=== PATIENT | male | born 1950 | race Two or more races ===

== ENCOUNTER → 2017-01-03 | Emergency (ER) | payer OTHER ==
[2017-01-03 15:43] VITALS: BP 132/105; PULSE 106; TEMP 98.2; BMI 31.6
--- NOTE | 2017-01-03 16:54 | PDOC ---
History of Present Illness - History of Present Illness Initial Comments: Patient is a 66 year old male with significant medical hx of HTN, GERD, hypothyroid disease and depression who is presenting to the ED with worsening depression for the past month. The patient saw his psychiatrist on 12/01 and was taken off one of his medications for depression. Since then hes had worsening depression, stating that he does not have the energy to leave the house. He reports that his psychiatrist is on vacation and he is unable to make an appointment with her. The patient does not have any suicidal or homicidal ideations. He denies wanting to hurt himself. The patient also has complaint of loss of appetite. Patient was hospitalized for his depression at [facility] two years ago. Social Hx: Denies alcohol, tobacco, or drug use. Psychiatrist: Mariama Beckett MD <Deborah Elliott - Last Filed: 01/03/17 17:36> - General History Source: Patient (managing cognitive engineer was used.) <Stephanie Roberts - Last Filed: 01/03/17 18:38> - General Chief Complaint: Psychiatric Stated Complaint: DIZZINESS Time Seen by Provider: 01/03/17 16:18 Past History <Deborah Elliott - Last Filed: 01/03/17 17:36> - Social History Smoking Status: Never smoked <Stephanie Roberts - Last Filed: 01/03/17 18:38> - Past Medical History Allergies/Adverse Reactions: Allergies No Known Allergies Allergy (Verified 01/03/17 15:43) Home Medications: Ambulatory Orders NK [No Known Home Medication] 01/03/17 *Review of Systems - Review of Systems Comments:: 01/03/17 17:36 GENERAL/CONSTITUTIONAL: Loss of appetite. No fever or chills. No weakness. HEAD, EYES, EARS, NOSE AND THROAT: No change in vision. No ear pain or discharge. No sore throat. CARDIOVASCULAR: No chest pain or shortness of breath. RESPIRATORY: No cough, wheezing, or hemoptysis. GASTROINTESTINAL: No nausea, vomiting, diarrhea or constipation. GENITOURINARY: No dysuria, frequency, or change in urination. MUSCULOSKELETAL: No joint or muscle swelling or pain. No neck or back pain. ENDOCRINE: No increased thirst. No abnormal weight change. SKIN: No rash NEUROLOGIC: No headache, vertigo, loss of consciousness, or change in strength/ sensation. PSYCH: Depression. No anxiety, suicidal ideation, homicidal ideation, or plans to self harm. <LexiDeborah - Last Filed: 01/03/17 17:36> *Physical Exam - Vital Signs Last Vital Signs Temp Pulse Resp BP Pulse Ox 98.2 F 106 H 20 132/105 96 01/03/17 15:37 01/03/17 15:37 01/03/17 15:37 01/03/17 15:37 01/03/17 15:37 - Physical Exam Comments: 01/03/17 17:37 GENERAL: Awake, alert, and fully oriented, in no acute distress HEAD: No signs of trauma EYES: PERRLA, EOMI, sclera anicteric, conjunctiva clear ENT: Auricles normal inspection, hearing grossly normal, nares patent, oropharynx clear without exudates. Moist mucosa NECK: Normal ROM, supple, no lymphadenopathy, JVD, or masses LUNGS: Breath sounds equal, clear to auscultation bilaterally. No wheezes, and no crackles HEART: Regular rate and rhythm, normal S1 and S2, no murmurs, rubs or gallops ABDOMEN: Soft, nontender, normoactive bowel sounds. No guarding, no rebound. No masses EXTREMITIES: Normal range of motion, no edema. No clubbing or cyanosis. No cords, erythema, or tenderness NEUROLOGICAL: Cranial nerves II through XII grossly intact. Normal speech, normal gait SKIN: Warm, Dry, normal turgor, no rashes or lesions noted. HEMATOLOGIC/LYMPHATIC: No anemia, easy bleeding, or history of blood clots. ALLERGIC/IMMUNOLOGIC: No hives or skin allergy. <LexiDeborah - Last Filed: 01/03/17 17:36> - Vital Signs Last Vital Signs Temp Pulse Resp BP Pulse Ox 98.2 F 106 H 20 132/105 96 01/03/17 15:37 01/03/17 15:37 01/03/17 15:37 01/03/17 15:37 01/03/17 15:37 <Stephanie Roberts - Last Filed: 01/03/17 18:38> Plan - Laboratory CBC & Chemistry Diagram: 01/03/17 17:08 01/03/17 17:08 <Deborah Elliott - Last Filed: 01/03/17 17:36> - Laboratory CBC & Chemistry Diagram: 01/03/17 17:08 01/03/17 17:08 - Medications Given in the ED: 66 y/o male with h/o hypothyroid disease as well as depression and HTN presents to the ED with c/o worsening of depressive Sx over the past month--not able to see his usual psychiatrist today and was told by his PCP to come to the ED. The patient is not homicidal, suicidal or psychotic. Will check thyroid and basic labs. If normal willl discharge hoem and have him follow-up with his usual psychiatrist and PCP. - Critical Care Time Comments: 01/03/17 18:36 66 y/o male with h/o hypothyroid disease as well as depression and HTN presents to the ED with c/o worsening of depressive Sx over the past month--not able to see his usual psychiatrist today and was told by his PCP to come to the ED. The patient is not homicidal, suicidal or psychotic. Will check thyroid and basic labs. If normal willl discharge hoem and have him follow-up with his usual psychiatrist and PCP. Addendum: Labs weren't reviewed and are noted in the EMR. Thyroid function tests are normal. We'll discharge home. Follow-up with regular psychiatrist. Return to the ER symptoms persist, worsen or new symptoms arise. <Stephanie Roberts - Last Filed: 01/03/17 18:38> *DC/Admit/Observation/Transfer - Attestations Scribe Attestion: 01/03/17 17:38 Documentation prepared by Deborah Elliott, acting as medical affairs manager for Stephanie Roberts MD. <Deborah Elliott - Last Filed: 01/03/17 17:36> - Discharge Dispostion Admit: No - Attestations Physician Attestion: 01/03/17 18:35 I, Dr. Stephanie Roberts, attest that the scribes documentation that appears above has been prepared under my direction and personally reviewed by me in its entirety. I confirmed that the note above accurately reflects all work, treatment, procedures, and medical decision-making performed by me. <Murano,Stephanie - Last Filed: 01/03/17 18:38> Diagnosis at time of Disposition: Depression - Discharge Dispostion Disposition: HOME Condition at time of disposition: Stable - Referrals Referrals: STAFF,NOT ON [Primary Care Provider] - - Patient Instructions Printed Discharge Instructions: DI for Depression -- Adult Additional Instructions: Follow-up with his psychiatrist within the next week. Return to the emergency department if your symptoms persist, worsen, or new symptoms arise.
[2017-01-03 17:21] LABS: BASOPHIL 0.6 % (0-2.0); EOSINOPHIL 2.7 % (0-4.5); MCH 29.7 pg (25.7-33.7); MCHC 33.9 g/dl (32.0-35.9); MEAN CELL VOLUME 87.6 fl (80-96); MEAN PLT VOLUME 9.3 fl (7.5-11.1); NEUTROPHILS 64.3 % (42.8-82.8); PLATELET COUNT 164 K/MM3 (134-434); RDW 13.7 % (11.9-15.9); WHITE BLOOD COUNT 5.1 K/mm3 (4.0-10.0)
[2017-01-03 17:40] LABS: CALCIUM 9.2 mg/dL (8.5-10.1); COCKROFT - GAULT 73.81; CREATININE 1.2 mg/dL (0.7-1.3); MAGNESIUM 2.2 mg/dL (1.8-2.4); PHOSPHOROUS 2.5 mg/dL (2.5-4.9)
[2017-01-03 17:48] LABS: THYROID STIMULATING HORMONE 2.12 uIU/ml (0.358-3.74)
== END | disposition home or self-care (01) ==
LOC: JER 15:36
DX: F32.9 Major depressive disorder, single episode, unspecified (principal); I10 Essential (primary) hypertension; E03.9 Hypothyroidism, unspecified; K21.9 Gastro-esophageal reflux disease without esophagitis
CPT/HCPCS: 36415; 80048; 83735; 84100; 84443; 85025; 99281-25

== ENCOUNTER 2017-09-03 09:45 | Inpatient (IN) | payer OTHER ==
--- NOTE | 2017-09-03 10:41 | PDOC ---
History of Present Illness - General History Source: Patient Exam Limitations: No Limitations - History of Present Illness Initial Comments: 09/03/17 10:57 The patient is a 67 year old male, with a significant past medical history of hypertension, GERD, and depression, who presents to the emergency department with 1 week history of dark watery stools. Patient reports multiple episodes of black diarrhea over the past week. He reports associated epigastric abdominal pain and weakness, but denies any nausea, vomiting, hemoptysis constipation, or hematochezia. He denies any recent fever, chills, headache, or dizziness. He denies any chest pain, shortness of breath, diaphoresis, or palpitations. He denies any dysuria, hematuria, frequency, or urgency. He denies any recent travel or sick contacts. Allergies: NKDA Past Surgical History: Appendectomy Social History: Non smoker. No ETOH or recreational drug use. <Porsha Ryan - Last Filed: 09/03/17 13:38> <Royal Rivera - Last Filed: 09/03/17 16:40> - General Chief Complaint: Nausea/Vomiting Stated Complaint: NAUSEA/DIARRHEA Time Seen by Provider: 09/03/17 10:25 Past History <Porsha Ryan - Last Filed: 09/03/17 13:38> - Past Medical History HTN: Yes Psychiatric Problems: Yes (DEPRESSION, ANXIETY) - Surgical History Appendectomy: Yes - Suicide/Smoking/Psychosocial Hx Smoking History: Never smoked Hx Alcohol Use: No Drug/Substance Use Hx: No Substance Use Type: None <Royal Rivera - Last Filed: 09/03/17 16:40> - Past Medical History Allergies/Adverse Reactions: Allergies Allergy/AdvReac Type Severity Reaction Status Date / Time No Known Allergies Allergy Verified 09/03/17 10:55 Home Medications: Ambulatory Orders NK [No Known Home Medication] 01/03/17 Review of Systems - Review of Systems Able to Perform ROS?: Yes Comments:: 09/03/17 10:58 ROS: A complete review of 10 out of 10 review of systems is taken and is negative apart from what is previously mentioned below and in the HPI. <Porsha Ryan - Last Filed: 09/03/17 13:38> *Physical Exam - Vital Signs Last Vital Signs Temp Pulse Resp BP Pulse Ox 97.4 F L 85 18 90/65 100 09/03/17 09:45 09/03/17 09:45 09/03/17 09:45 09/03/17 09:45 09/03/17 09:45 - Physical Exam Comments: 09/03/17 10:58 Vitals: Triage vital signs reviewed General Appearance: No acute distress, well nourished, well developed Cardiac: Regular rate and rhythm, no murmurs, no rubs, no gallops Abdomen: Soft, nondistended, normal bowel sounds, nontender to palpation Rectal: Guaiac positive black stool. Extremities: Full range of motion to all extremities, no cyanosis, clubbing, or edema Skin: Warm and dry, no rashes or lesions, no rash, no petechiae Psych: Normal mood, normal affect <Porsha Ryan - Last Filed: 09/03/17 13:38> Heart Score/ECG Review - ECG Intrepretation Comment:: 09/03/17 13:29 Vent Rate: 74 bpm IMPRESSION: Left axis deviation. Incomplete right bindle branch block. <Porsha Ryan - Last Filed: 09/03/17 13:38> ED Treatment Course - LABORATORY CBC & Chemistry Diagram: 09/03/17 10:42 09/03/17 11:08 - RADIOLOGY Radiograph Interpretation: 09/03/17 13:39 EXAM: CXR INTERPRETED BY: Dr. Rolon REVIEWED BY: Dr. Rivera Impression : Scoliosis. No acute pathology. No significant change. - Consult/PCP Time Called: 13:01 (Case discussed with Dr. Velasquez who accepts admission.) - Additional Consults Time Called: 12:20 (First call to Dr. Jama. ) Consult/PCP: Consult Reason/Comments: Requested Dr. Starkey Time Called: 12:22 (First call to Dr. Starkey) Consult/PCP: GI Consult Reason/Comments: GI bleed <Porsha Ryan - Last Filed: 09/03/17 13:38> - LABORATORY CBC & Chemistry Diagram: 09/03/17 10:42 09/03/17 11:08 <Royal Rivera - Last Filed: 09/03/17 16:40> Medical Decision Making - Critical Care Time Total Critical Care Time (minutes): 35 Critical Care Statement: The care of this patient involved high complexity decision making to prevent further life threatening deterioration of the patient 's condition and/or to evaluate & treat vital organ system(s) failure or risk of failure. - Medical Decision Making 09/03/17 16:38 Have an years old nonanticoagulant patient presents with 1 week history of dark black stools and epigastric discomfort. His rectal examination was guaiac positive melena His hemoglobin and hematocrit were markedly decreased. His hemoglobin was for. Case discussed with Dr. Vera admitting doctor Case discussed with Dr. Lalito marinelli. Requested Protonix bolus/gtt 2 Units packed red blood cells ordered <Royal Rivera - Last Filed: 09/03/17 16:40> *DC/Admit/Observation/Transfer - Attestations Scribe Attestion: 09/03/17 10:59 Documentation prepared by Porsha Ryan, acting as medical coordinator pesticide use for Royal Rivera MD. <Porsha Ryan - Last Filed: 09/03/17 13:38> - Discharge Dispostion Admit: Yes <Royal Rivera - Last Filed: 09/03/17 16:40> Diagnosis at time of Disposition: GI bleed Qualifiers: GI bleed type/associated pathology: melena Qualified Code(s): K92.1 - Melena
[2017-09-03 10:55] VITALS: BMI 26.6
[2017-09-03 11:19] LABS: BASO % 0.5 % (0-2.0); EOS % 0.2 % (0-4.5); HEMATOCRIT 12.8 % (35.4-49); LYMPH % 13.7 % (8-40); MCH 30.7 pg (25.7-33.7); MCHC 34.2 g/dl (32.0-35.9); MEAN CELL VOLUME 89.8 fl (80-96); MEAN PLT VOLUME 9.3 fl (7.5-11.1); MONO % 4.2 % (3.8-10.2); NEUT % 81.4 % (42.8-82.8); PLATELET COUNT 134 K/MM3 (134-434); RBC 1.43 M/mm3 (4.00-5.60); RDW 14.2 % (11.9-15.9); WHITE BLOOD COUNT 9.1 K/mm3 (4.0-10.0)
[2017-09-03 11:21] LABS: HEMOGLOBIN 4.4 GM/dL (11.7-16.9)
[2017-09-03 11:28] LABS: INR 1.05 (0.82-1.09); PROTHROMBIN TIME (PATIENT) 11.9 SEC (9.98-11.88)
[2017-09-03 11:31] LABS: ACTIVATED PTT 25.1 SECONDS (26.9-34.4)
[2017-09-03 11:41] LABS: ALBUMIN 2.2 g/dl (3.4-5.0); ANION GAP 12 (8-16); CALCIUM 7.1 mg/dL (8.5-10.1); CHLORIDE 111 mmol/L (98-107); CO2 18 mmol/L (21-32); CREATININE 1.6 mg/dL (0.7-1.3); GLUCOSE,RANDOM 115 mg/dL (74-106); SGOT/AST 13 U/L (15-37); SGPT/ALT 18 U/L (12-78); SODIUM 141 mmol/L (136-145); TOT PROT 4.4 g/dl (6.4-8.2)
[2017-09-03 11:43] LABS: ALK PHOS 43 U/L (45-117)
[2017-09-03 12:05] LABS: BILIRUBIN,TOTAL < 0.1 mg/dL (0.2-1.0)
[2017-09-03 12:06] LABS: BLOOD UREA NITROGEN 114 mg/dL (7-18)
[2017-09-03] MEDS ORDERED: PANTOPRAZOLE SODIUM 40 MG VIAL IVPUSH ONE (15:11)
[2017-09-03] MEDS ORDERED: PANTOPRAZOLE SODIUM 40 MG VIAL ONE (15:18)
[2017-09-03] MEDS: PANTOPRAZOLE SODIUM 80 MG in SODIUM CHLORIDE 100 ML IVPB SCH ×2 (15:18→16:37)
--- NOTE | 2017-09-03 15:22 | CON.GI ---
Consult - History of Present Illness History of Present Illness: The patient is a 67 year old male, with a significant past medical history of hypertension, GERD, and depression, who presents to the emergency department with 1 week history of dark watery stools. Patient reports multiple episodes of black diarrhea over the past week. He reports associated epigastric abdominal pain and weakness, but denies any nausea, vomiting, hemoptysis constipation, or hematochezia. He denies any recent fever, chills, headache, or dizziness. He denies any chest pain, shortness of breath, diaphoresis, or palpitations. He denies any dysuria, hematuria, frequency, or urgency. He denies any recent travel or sick contacts. - Alcohol/Substance Use Hx Alcohol Use: No - Smoking History Smoking history: Never smoked Have you smoked in the past 12 months: No Home Medications - Allergies Allergies/Adverse Reactions: Allergies Allergy/AdvReac Type Severity Reaction Status Date / Time No Known Allergies Allergy Verified 09/03/17 10:55 - Home Medications Home Medications: Ambulatory Orders NK [No Known Home Medication] 01/03/17 Family Disease History - Family Disease History Family History: Unremarkable (non-contributory) Review of Systems Findings/Remarks: as per H&P, HPI Physical Exam-GI Vital Signs: Vital Signs Temperature 97.8 F 09/03/17 14:22 Pulse Rate 78 09/03/17 14:22 Respiratory Rate 16 09/03/17 14:22 Blood Pressure 107/59 09/03/17 14:22 O2 Sat by Pulse Oximetry (%) 98 09/03/17 14:22 Labs: CBC, BMP 09/03/17 10:42 09/03/17 11:08 INR, PTT INR 1.05 (0.82-1.09) 09/03/17 11:08 Laboratory Results - last 24 hr 09/03/17 09/03/17 09/03/17 10:42 11:08 11:08 WBC 9.1 D RBC 1.43 L D Hgb 4.4 L* D Hct 12.8 L MCV 89.8 MCH 30.7 MCHC 34.2 RDW 14.2 Plt Count 134 MPV 9.3 Neutrophils % 81.4 D Lymphocytes % 13.7 D Monocytes % 4.2 Eosinophils % 0.2 D Basophils % 0.5 PT with INR 11.90 H INR 1.05 PTT (Actin FS) 25.1 L Sodium Potassium Chloride Carbon Dioxide Anion Gap BUN Creatinine Creat Clearance w eGFR POC Glucometer Random Glucose Calcium Total Bilirubin AST ALT Alkaline Phosphatase Troponin I Total Protein Albumin Stool Occult Blood Positive Blood Type Antibody Screen Crossmatch 09/03/17 09/03/17 09/03/17 11:08 11:08 12:00 WBC RBC Hgb Hct MCV MCH MCHC RDW Plt Count MPV Neutrophils % Lymphocytes % Monocytes % Eosinophils % Basophils % PT with INR INR PTT (Actin FS) Sodium 141 Potassium 5.0 Chloride 111 H Carbon Dioxide 18 L D Anion Gap 12 BUN 114 H* D Creatinine 1.6 H D Creat Clearance w eGFR 43.33 POC Glucometer Random Glucose 115 H Calcium 7.1 L D Total Bilirubin < 0.1 L AST 13 L ALT 18 Alkaline Phosphatase 43 L Troponin I < 0.02 Total Protein 4.4 L Albumin 2.2 L Stool Occult Blood Blood Type O POSITIVE O POSITIVE Antibody Screen Negative Crossmatch See Detail See Detail 09/03/17 12:46 WBC RBC Hgb Hct MCV MCH MCHC RDW Plt Count MPV Neutrophils % Lymphocytes % Monocytes % Eosinophils % Basophils % PT with INR INR PTT (Actin FS) Sodium Potassium Chloride Carbon Dioxide Anion Gap BUN Creatinine Creat Clearance w eGFR POC Glucometer 130.37182 Random Glucose Calcium Total Bilirubin AST ALT Alkaline Phosphatase Troponin I Total Protein Albumin Stool Occult Blood Blood Type Antibody Screen Crossmatch Imaging - Results Chest X-ray: Report Reviewed Problem List - Problems (1) GI bleed Code(s): K92.2 - GASTROINTESTINAL HEMORRHAGE, UNSPECIFIED Qualifiers: GI bleed type/associated pathology: melena Qualified Code(s): K92.1 - Melena
--- NOTE | 2017-09-03 15:57 | HP ---
Admitting History and Physical - Primary Care Physician PCP: April Velasquez - Admission Chief Complaint: dark stools..watery History of Present Illness: 67 year old male, with a significant past medical history of hypertension, GERD , and depression, who presents to the emergency department with 1 week history of dark watery stools. Patient reports multiple episodes of black diarrhea over the past week. He reports associated epigastric abdominal pain and weakness, but denies any nausea, vomiting, hemoptysis constipation, or hematochezia. He denies any recent fever, chills, headache, or dizziness. He denies any chest pain, shortness of breath, diaphoresis, or palpitations. He denies any dysuria, hematuria, frequency, or urgency. He denies any recent travel or sick contacts. - Past Medical History Cardiovascular: Yes: HTN Renal/: Yes: Renal Inusuff Psych: Yes: Depression - Smoking History Smoking history: Never smoked Have you smoked in the past 12 months: No - Alcohol/Substance Use Hx Alcohol Use: No Home Medications - Allergies Allergies/Adverse Reactions: Allergies Allergy/AdvReac Type Severity Reaction Status Date / Time No Known Allergies Allergy Verified 09/03/17 10:55 - Home Medications Home Medications: Ambulatory Orders NK [No Known Home Medication] 01/03/17 Physical Examination Vital Signs: Vital Signs Temperature 97.6 F 09/03/17 15:52 Pulse Rate 73 09/03/17 15:52 Respiratory Rate 16 09/03/17 15:52 Blood Pressure 106/62 09/03/17 15:52 O2 Sat by Pulse Oximetry (%) 97 09/03/17 15:52 Constitutional: Yes: No Distress HENT: Yes: Atraumatic Neck: Yes: Supple Cardiovascular: Yes: Regular Rate and Rhythm Respiratory: Yes: CTA Bilaterally Gastrointestinal: Yes: Normal Bowel Sounds Extremities: Yes: WNL Edema: No Peripheral Pulses WNL: Yes Neurological: Yes: Alert, Oriented Labs: CBC, BMP 09/03/17 10:42 09/03/17 11:08 Problem List - Problems (1) GI bleed Assessment/Plan: npo, ivf iv protonix Code(s): K92.2 - GASTROINTESTINAL HEMORRHAGE, UNSPECIFIED Qualifiers: GI bleed type/associated pathology: melena Qualified Code(s): K92.1 - Melena (2) Depression Code(s): F32.9 - MAJOR DEPRESSIVE DISORDER, SINGLE EPISODE, UNSPECIFIED (3) Acute blood loss anemia Assessment/Plan: 3 u prbc given Code(s): D62 - ACUTE POSTHEMORRHAGIC ANEMIA Assessment/Plan Laboratory Tests 09/03/17 09/03/17 09/03/17 10:42 11:08 11:08 WBC 9.1 D RBC 1.43 L D Hgb 4.4 L* D Hct 12.8 L MCV 89.8 MCH 30.7 MCHC 34.2 RDW 14.2 Plt Count 134 MPV 9.3 Neutrophils % 81.4 D Lymphocytes % 13.7 D Monocytes % 4.2 Eosinophils % 0.2 D Basophils % 0.5 PT with INR 11.90 H INR 1.05 PTT (Actin FS) 25.1 L Sodium Potassium Chloride Carbon Dioxide Anion Gap BUN Creatinine Creat Clearance w eGFR POC Glucometer Random Glucose Calcium Total Bilirubin AST ALT Alkaline Phosphatase Troponin I Total Protein Albumin Stool Occult Blood Positive Blood Type Antibody Screen Crossmatch 09/03/17 09/03/17 09/03/17 11:08 11:08 12:00 WBC RBC Hgb Hct MCV MCH MCHC RDW Plt Count MPV Neutrophils % Lymphocytes % Monocytes % Eosinophils % Basophils % PT with INR INR PTT (Actin FS) Sodium 141 Potassium 5.0 Chloride 111 H Carbon Dioxide 18 L D Anion Gap 12 BUN 114 H* D Creatinine 1.6 H D Creat Clearance w eGFR 43.33 POC Glucometer Random Glucose 115 H Calcium 7.1 L D Total Bilirubin < 0.1 L AST 13 L ALT 18 Alkaline Phosphatase 43 L Troponin I < 0.02 Total Protein 4.4 L Albumin 2.2 L Stool Occult Blood Blood Type O POSITIVE O POSITIVE Antibody Screen Negative Crossmatch See Detail See Detail 09/03/17 12:46 WBC RBC Hgb Hct MCV MCH MCHC RDW Plt Count MPV Neutrophils % Lymphocytes % Monocytes % Eosinophils % Basophils % PT with INR INR PTT (Actin FS) Sodium Potassium Chloride Carbon Dioxide Anion Gap BUN Creatinine Creat Clearance w eGFR POC Glucometer 130.41729 Random Glucose Calcium Total Bilirubin AST ALT Alkaline Phosphatase Troponin I Total Protein Albumin Stool Occult Blood Blood Type Antibody Screen Crossmatch Active Medications Generic Name Dose Route Start Last Admin Trade Name Freq PRN Reason Stop Dose Admin Pantoprazole Sodium 160 mg/ 250 mls @ 12.5 mls/hr 09/03/17 15:22 Dextrose IVPB Q20H ELGIN 8 MG/HR Active Medications Generic Name Dose Route Start Last Admin Trade Name Freq PRN Reason Stop Dose Admin Pantoprazole Sodium 160 mg/ 250 mls @ 12.5 mls/hr 09/03/17 15:22 Dextrose IVPB Q20H ELGIN 8 MG/HR Dextrose/Sodium Chloride 1,000 mls @ 75 mls/hr 09/03/17 16:00 09/03/17 16:36 D5-1/2ns - IV 75 mls/hr ASDIR ELGIN Administration Sucralfate 1 gm 09/03/17 18:00 09/03/17 17:32 Carafate Oral Suspension - PO 1 gm QID ELGIN Administration
[2017-09-03] MEDS ORDERED: DEXTROSE 5%-0.45% SALINE 1,000 ML IV SCH (16:00)
--- NOTE | 2017-09-03 16:15 | CON.GI ---
Consult - History of Present Illness History of Present Illness: Chart reviewed. Events noted. The patient is a 67 year old male, with a significant past medical history of hypertension, GERD, and depression, who presents to the emergency department with 1 week history of dark watery stools. Patient reports multiple episodes of black diarrhea over the past week. He reports associated epigastric abdominal pain and weakness, but denies any nausea, vomiting, hemoptysis, hematemesis, hematochezia, constipation. He denies any recent fever, chills, headache, or dizziness. He denies any chest pain, shortness of breath, diaphoresis, or palpitations. He denies any recent travel or sick contacts. Took peptobismol for diarrheal symptoms. No hisotory of chronic NSAIDs, oe excessive alcohol. No history of PUD, or GI bleeding in the past. - History Source History Provided By: Patient, Medical Record - Past Medical History Cardio/Vascular: Yes: HTN Renal/: Yes: Renal Inusuff Psych: Yes: Depression - Alcohol/Substance Use Hx Alcohol Use: No - Smoking History Smoking history: Never smoked Have you smoked in the past 12 months: No Home Medications - Allergies Allergies/Adverse Reactions: Allergies Allergy/AdvReac Type Severity Reaction Status Date / Time No Known Allergies Allergy Verified 09/03/17 10:55 - Home Medications Home Medications: Ambulatory Orders NK [No Known Home Medication] 01/03/17 Family Disease History - Family Disease History Family History: Unremarkable (non-contributory) Review of Systems Findings/Remarks: As per H&P, HPI Physical Exam-GI Vital Signs: Vital Signs Temperature 97.6 F 09/03/17 15:52 Pulse Rate 73 09/03/17 15:52 Respiratory Rate 16 09/03/17 15:52 Blood Pressure 106/62 09/03/17 15:52 O2 Sat by Pulse Oximetry (%) 97 09/03/17 15:52 Constitutional: Yes: Calm Eyes: Yes: Conjunctiva Clear HENT: Yes: Atraumatic Neck: Yes: Supple Cardiovascular: Yes: Regular Rate and Rhythm Respiratory: Yes: Regular Gastrointestinal Inspection: No: Ascites, Distention ...Auscultate: Yes: Normoactive Bowel Sounds, Other ...Palpate: Yes: Soft. No: Firm/Rigid, Guarding, Mass, Tenderness, Tenderness, Epigastium, Tenderness, Rebound ...Rectal Exam: Yes: Guaiac Positive, Other (melena) Neurological: Yes: Alert, Oriented Labs: CBC, BMP 09/03/17 10:42 09/03/17 11:08 INR, PTT INR 1.05 (0.82-1.09) 09/03/17 11:08 Laboratory Tests 09/03/17 09/03/17 09/03/17 10:42 11:08 11:08 WBC 9.1 D RBC 1.43 L D Hgb 4.4 L* D Hct 12.8 L MCV 89.8 MCH 30.7 MCHC 34.2 RDW 14.2 Plt Count 134 MPV 9.3 Neutrophils % 81.4 D Lymphocytes % 13.7 D Monocytes % 4.2 Eosinophils % 0.2 D Basophils % 0.5 PT with INR 11.90 H INR 1.05 PTT (Actin FS) 25.1 L Sodium Potassium Chloride Carbon Dioxide Anion Gap BUN Creatinine Creat Clearance w eGFR POC Glucometer Random Glucose Calcium Total Bilirubin AST ALT Alkaline Phosphatase Troponin I Total Protein Albumin Stool Occult Blood Positive Blood Type Antibody Screen Crossmatch 09/03/17 09/03/17 09/03/17 11:08 11:08 12:00 WBC RBC Hgb Hct MCV MCH MCHC RDW Plt Count MPV Neutrophils % Lymphocytes % Monocytes % Eosinophils % Basophils % PT with INR INR PTT (Actin FS) Sodium 141 Potassium 5.0 Chloride 111 H Carbon Dioxide 18 L D Anion Gap 12 BUN 114 H* D Creatinine 1.6 H D Creat Clearance w eGFR 43.33 POC Glucometer Random Glucose 115 H Calcium 7.1 L D Total Bilirubin < 0.1 L AST 13 L ALT 18 Alkaline Phosphatase 43 L Troponin I < 0.02 Total Protein 4.4 L Albumin 2.2 L Stool Occult Blood Blood Type O POSITIVE O POSITIVE Antibody Screen Negative Crossmatch See Detail See Detail 09/03/17 12:46 WBC RBC Hgb Hct MCV MCH MCHC RDW Plt Count MPV Neutrophils % Lymphocytes % Monocytes % Eosinophils % Basophils % PT with INR INR PTT (Actin FS) Sodium Potassium Chloride Carbon Dioxide Anion Gap BUN Creatinine Creat Clearance w eGFR POC Glucometer 130.99618 Random Glucose Calcium Total Bilirubin AST ALT Alkaline Phosphatase Troponin I Total Protein Albumin Stool Occult Blood Blood Type Antibody Screen Crossmatch Problem List - Problems (1) GI bleed Code(s): K92.2 - GASTROINTESTINAL HEMORRHAGE, UNSPECIFIED Qualifiers: GI bleed type/associated pathology: melena Qualified Code(s): K92.1 - Melena (2) Acute blood loss anemia Code(s): D62 - ACUTE POSTHEMORRHAGIC ANEMIA Assessment/Plan A 67 yom with likely upper GI bleeding, r/o proximal, lower GI bleeding. Agree with transfusion to Hgb above 8 gm/dl golyte PPI, carafate, IVF, CBC q6 hrs Close monitoring EGD once transfused and stable ICU monitoring.
[2017-09-03] MEDS ORDERED: BISACODYL 5 MG TABLET.DR (FP) PO ONE (16:18)
[2017-09-03] MEDS ORDERED: PEG 3350/NA SULF BICARB CL/KCL 4000 ML SOLN.RECON PO ONE (16:18)
[2017-09-03] MEDS: PANTOPRAZOLE SODIUM 160 MG in DEXTROSE 5%-WATER - 250 ML IVPB SCH ×2 (16:36→18:32)
[2017-09-03] MEDS ORDERED: BISACODYL 5 MG TABLET.DR (FP) ONE (17:31)
[2017-09-03] MEDS ORDERED: SUCRALFATE 1 GM TABLET (FP) ONE (17:31)
[2017-09-03] MEDS: SUCRALFATE 1 GM/10 ML UNIT DOSE CUPS PO SCH ×2 (17:32→22:25)
[2017-09-03 18:12] LABS: MCH 29.7 pg (25.7-33.7); MCHC 33.4 g/dl (32.0-35.9); MEAN CELL VOLUME 88.8 fl (80-96); MEAN PLT VOLUME 9.1 fl (7.5-11.1); PLATELET COUNT 134 K/MM3 (134-434); RBC 2.07 M/mm3 (4.00-5.60); RDW 14.6 % (11.9-15.9); WHITE BLOOD COUNT 8.8 K/mm3 (4.0-10.0)
[2017-09-03 18:18] LABS: HEMATOCRIT 18.3 % (35.4-49); HEMOGLOBIN 6.1 GM/dL (11.7-16.9)
[2017-09-04 08:02] LABS: BASO % 0.7 % (0-2.0); EOS % 1.1 % (0-4.5); MCHC 34.4 g/dl (32.0-35.9); MEAN CELL VOLUME 87.4 fl (80-96); MEAN PLT VOLUME 9.6 fl (7.5-11.1); MONO % 4.5 % (3.8-10.2); NEUT % 67.7 % (42.8-82.8); PLATELET COUNT 146 K/MM3 (134-434); RBC 2.17 M/mm3 (4.00-5.60); RDW 14.9 % (11.9-15.9); WHITE BLOOD COUNT 9.1 K/mm3 (4.0-10.0)
[2017-09-04 08:25] LABS: ALBUMIN 2.6 g/dl (3.4-5.0); ANION GAP 10 (8-16); BLOOD UREA NITROGEN 84 mg/dL (7-18); CALCIUM 7.3 mg/dL (8.5-10.1); CHLORIDE 115 mmol/L (98-107); CO2 19 mmol/L (21-32); CREATININE 1.5 mg/dL (0.7-1.3); GLUCOSE,RANDOM 202 mg/dL (74-106); POTASSIUM 4.3 mmol/L (3.5-5.1); SGOT/AST 22 U/L (15-37); SGPT/ALT 25 U/L (12-78); SODIUM 144 mmol/L (136-145)
[2017-09-04 08:30] LABS: ALK PHOS 50 U/L (45-117); BILIRUBIN,TOTAL 0.4 mg/dL (0.2-1.0); TOT PROT 5.1 g/dl (6.4-8.2)
[2017-09-04 08:36] LABS: INR 1.03 (0.82-1.09); PROTHROMBIN TIME (PATIENT) 11.6 SEC (9.98-11.88)
[2017-09-04 08:49] LABS: HEMOGLOBIN 6.5 GM/dL (11.7-16.9)
[2017-09-04] MEDS ORDERED: MUPIROCIN 2% TOPICAL OINTMENT FOR DECOLONIZATION NS SCH (10:00)
--- NOTE | 2017-09-04 10:52 | EKG ---
Test Reason : Blood Pressure : / mmHG Vent. Rate : 074 BPM Atrial Rate : 074 BPM P-R Int : 158 ms QRS Dur : 106 ms QT Int : 374 ms P-R-T Axes : 037 -32 045 degrees QTc Int : 415 ms NORMAL SINUS RHYTHM LEFT AXIS DEVIATION INCOMPLETE RIGHT BUNDLE BRANCH BLOCK ABNORMAL ECG NO PREVIOUS ECGS AVAILABLE Confirmed by MD Adonis, Ranjit ([id number]) on 09/04/2017 10:52:25 AM Referred By: Confirmed By:Ranjit Lamb MD
[2017-09-04] MEDS: SUCRALFATE 1 GM/10 ML UNIT DOSE CUPS PO SCH ×4 (11:21→21:08)
[2017-09-04] MEDS: PANTOPRAZOLE SODIUM 160 MG in DEXTROSE 5%-WATER - 250 ML IVPB SCH ×2 (11:27→16:45)
[2017-09-04] MEDS ORDERED: PROPOFOL 20 ML ONE ×3 (13:05→13:06)
--- NOTE | 2017-09-04 13:39 | PROC ---
Endoscopy Procedure Endoscopy procedure completed. Please see scanned procedure report. Duodenal bulb, oozing blood, 10 mm x 7 mm ulcer with visible vessel was found, injected with 6 cc Epi 1:10,000 and closed with 3 resolution clipps. Complete hemostasis was achieved. Gastric mucosal biopsies taken for H. pylori. Colonoscopy revealed mild, sigmoid diverticulosis Clear liquid diet PPI Carafate No NSAIDs Follow biopsy results. Serial CBC
--- NOTE | 2017-09-04 16:57 | PN ---
Progress Note, Physician History of Present Illness: s/p egd - Current Medication List Current Medications: Active Medications Chlorhexidine Gluconate (Hibiclens For Decolonization -) 1 applic TP HS ELGIN Dextrose/Sodium Chloride (D5-1/2ns -) 1,000 mls @ 75 mls/hr IV ASDIR ELGIN Pantoprazole Sodium 160 mg/ (Dextrose) 250 mls @ 12.5 mls/hr IVPB Q20H ELGIN PRN Reason: 8 MG/HR Mupirocin (Bactroban Ointment (For Decolonization) -) 1 applic NS BID ELGIN Stop: 09/09/17 09:59 Last Admin: 09/04/17 11:21 Dose: Not Given Sucralfate (Carafate Oral Suspension -) 1 gm PO QID ELGIN - Objective Vital Signs: Vital Signs Temperature 97.6 F 09/04/17 14:45 Pulse Rate 96 H 09/04/17 14:45 Respiratory Rate 20 09/04/17 14:45 Blood Pressure 137/84 09/04/17 14:45 O2 Sat by Pulse Oximetry (%) 97 09/04/17 14:13 Constitutional: Yes: Calm HENT: Yes: Atraumatic Neck: Yes: Supple Cardiovascular: Yes: Regular Rate and Rhythm Respiratory: Yes: CTA Bilaterally Gastrointestinal: Yes: Normal Bowel Sounds Extremities: Yes: WNL Neurological: Yes: Alert, Oriented Labs: CBC, BMP 09/04/17 06:30 09/04/17 06:30 INR, PTT INR 1.03 (0.82-1.09) 09/04/17 06:30 Problem List - Problems (1) GI bleed Assessment/Plan: duodenal ulcer...clamped iv protonix Code(s): K92.2 - GASTROINTESTINAL HEMORRHAGE, UNSPECIFIED Qualifiers: GI bleed type/associated pathology: melena Qualified Code(s): K92.1 - Melena (2) Depression Code(s): F32.9 - MAJOR DEPRESSIVE DISORDER, SINGLE EPISODE, UNSPECIFIED (3) Acute blood loss anemia Code(s): D62 - ACUTE POSTHEMORRHAGIC ANEMIA
[2017-09-04] MEDS ORDERED: CHLORHEXIDINE GLUCONATE 4% CLEANSER FOR DECOLONIZATION TP SCH (22:00)
[2017-09-05] MEDS: DEXTROSE 5%-0.45% SALINE 1,000 ML IV SCH ×2 (01:04→17:10)
[2017-09-05 01:37] LABS: HEMOGLOBIN 7.6 GM/dL (11.7-16.9); MCHC 34.3 g/dl (32.0-35.9); MEAN CELL VOLUME 87.5 fl (80-96); MEAN PLT VOLUME 8.8 fl (7.5-11.1); PLATELET COUNT 136 K/MM3 (134-434); RBC 2.52 M/mm3 (4.00-5.60); RDW 14.3 % (11.9-15.9); WHITE BLOOD COUNT 8.3 K/mm3 (4.0-10.0)
[2017-09-05 02:02] LABS: INR 1.05 (0.82-1.09); PROTHROMBIN TIME (PATIENT) 11.9 SEC (9.98-11.88)
[2017-09-05 02:03] LABS: ALBUMIN 2.4 g/dl (3.4-5.0); ALK PHOS 85 U/L (45-117); ANION GAP 7 (8-16); BILIRUBIN,TOTAL 0.4 mg/dL (0.2-1.0); BLOOD UREA NITROGEN 44 mg/dL (7-18); CALCIUM 7.6 mg/dL (8.5-10.1); CHLORIDE 116 mmol/L (98-107); CO2 23 mmol/L (21-32); CREATININE 1.2 mg/dL (0.7-1.3); GLUCOSE,RANDOM 100 mg/dL (74-106); SGOT/AST 59 U/L (15-37); SGPT/ALT 51 U/L (12-78); SODIUM 146 mmol/L (136-145); TOT PROT 4.8 g/dl (6.4-8.2)
[2017-09-05 06:06] LABS: SERUM IRON SATURATION 40 % (15-55); TOTAL IRON BINDING CAPACITY 299 ug/dL (250-450); UIBC 180 ug/dL (111-343)
[2017-09-05 08:09] LABS: HEMATOCRIT 21.1 % (35.4-49); HEMOGLOBIN 7.3 GM/dL (11.7-16.9); MCH 30.1 pg (25.7-33.7); MCHC 34.5 g/dl (32.0-35.9); MEAN CELL VOLUME 87.4 fl (80-96); MEAN PLT VOLUME 8.7 fl (7.5-11.1); PLATELET COUNT 121 K/MM3 (134-434); RBC 2.42 M/mm3 (4.00-5.60); RDW 14.3 % (11.9-15.9); WHITE BLOOD COUNT 6.3 K/mm3 (4.0-10.0)
[2017-09-05 08:33] LABS: ALBUMIN 2.3 g/dl (3.4-5.0); ALK PHOS 79 U/L (45-117); ANION GAP 7 (8-16); BILIRUBIN,TOTAL 0.4 mg/dL (0.2-1.0); BLOOD UREA NITROGEN 33 mg/dL (7-18); CALCIUM 7.3 mg/dL (8.5-10.1); CHLORIDE 115 mmol/L (98-107); CO2 25 mmol/L (21-32); CREATININE 1.1 mg/dL (0.7-1.3); GLUCOSE,RANDOM 100 mg/dL (74-106); POTASSIUM 3.8 mmol/L (3.5-5.1); SGOT/AST 38 U/L (15-37); SGPT/ALT 46 U/L (12-78); SODIUM 147 mmol/L (136-145); TOT PROT 4.5 g/dl (6.4-8.2)
[2017-09-05 08:44] LABS: INR 1.04 (0.82-1.09); PROTHROMBIN TIME (PATIENT) 11.7 SEC (9.98-11.88)
[2017-09-05] MEDS: SUCRALFATE 1 GM/10 ML UNIT DOSE CUPS PO SCH ×4 (09:42→21:49)
[2017-09-05] MEDS: PANTOPRAZOLE SODIUM 160 MG in DEXTROSE 5%-WATER - 250 ML IVPB SCH (17:10)
--- NOTE | 2017-09-05 17:10 | PN ---
Progress Note, Physician History of Present Illness: doing better - Current Medication List Current Medications: Active Medications Dextrose/Sodium Chloride (D5-1/2ns -) 1,000 mls @ 75 mls/hr IV ASDIR [facility] Last Admin: 09/05/17 01:04 Dose: 75 mls/hr Pantoprazole Sodium 160 mg/ (Dextrose) 250 mls @ 12.5 mls/hr IVPB Q20H ELGIN PRN Reason: 8 MG/HR Last Admin: 09/04/17 16:45 Dose: 12.5 mls/hr Sucralfate (Carafate Oral Suspension -) 1 gm PO QID [facility] Last Admin: 09/05/17 14:16 Dose: 1 gm - Objective Vital Signs: Vital Signs Temperature 98.6 F 09/05/17 13:00 Pulse Rate 70 09/05/17 13:00 Respiratory Rate 20 09/05/17 13:00 Blood Pressure 139/77 09/05/17 13:00 O2 Sat by Pulse Oximetry (%) 98 09/05/17 08:16 Constitutional: Yes: No Distress HENT: Yes: Atraumatic Neck: Yes: Supple Cardiovascular: Yes: Regular Rate and Rhythm Respiratory: Yes: CTA Bilaterally Gastrointestinal: Yes: Normal Bowel Sounds Extremities: Yes: WNL Edema: No Peripheral Pulses WNL: Yes Neurological: Yes: Alert, Oriented Labs: CBC, BMP 09/05/17 06:50 09/05/17 06:50 INR, PTT INR 1.04 (0.82-1.09) 09/05/17 06:50 Problem List - Problems (1) GI bleed Assessment/Plan: duodenal ulcer...clamped iv protonix h/h stable Code(s): K92.2 - GASTROINTESTINAL HEMORRHAGE, UNSPECIFIED Qualifiers: GI bleed type/associated pathology: melena Qualified Code(s): K92.1 - Melena (2) Depression Code(s): F32.9 - MAJOR DEPRESSIVE DISORDER, SINGLE EPISODE, UNSPECIFIED (3) Acute blood loss anemia Assessment/Plan: 3 u prbc given h/h better Code(s): D62 - ACUTE POSTHEMORRHAGIC ANEMIA
[2017-09-06 07:38] LABS: HEMATOCRIT 23.2 % (35.4-49); HEMOGLOBIN 7.9 GM/dL (11.7-16.9); MCH 30.2 pg (25.7-33.7); MCHC 34.3 g/dl (32.0-35.9); MEAN CELL VOLUME 87.9 fl (80-96); MEAN PLT VOLUME 8.8 fl (7.5-11.1); PLATELET COUNT 127 K/MM3 (134-434); RBC 2.63 M/mm3 (4.00-5.60); RDW 14.7 % (11.9-15.9); WHITE BLOOD COUNT 5.8 K/mm3 (4.0-10.0)
[2017-09-06 08:02] LABS: INR 1.04 (0.82-1.09); PROTHROMBIN TIME (PATIENT) 11.7 SEC (9.98-11.88)
[2017-09-06 08:03] LABS: ALBUMIN 2.3 g/dl (3.4-5.0); ANION GAP 7 (8-16); BLOOD UREA NITROGEN 17 mg/dL (7-18); CALCIUM 7.7 mg/dL (8.5-10.1); CHLORIDE 112 mmol/L (98-107); CO2 27 mmol/L (21-32); GLUCOSE,RANDOM 89 mg/dL (74-106); POTASSIUM 3.4 mmol/L (3.5-5.1); SGPT/ALT 39 U/L (12-78); SODIUM 146 mmol/L (136-145)
[2017-09-06 08:05] LABS: ALK PHOS 74 U/L (45-117); BILIRUBIN,TOTAL 0.4 mg/dL (0.2-1.0); SGOT/AST 25 U/L (15-37); TOT PROT 4.7 g/dl (6.4-8.2)
[2017-09-06] MEDS: SUCRALFATE 1 GM/10 ML UNIT DOSE CUPS PO SCH ×2 (09:41→13:31)
[2017-09-06] MEDS: PANTOPRAZOLE SODIUM 160 MG in DEXTROSE 5%-WATER - 250 ML IVPB SCH (09:42)
[2017-09-06 09:44] VITALS: BP 137/67; PULSE 62; TEMP 98
[2017-09-06] MEDS ORDERED: POTASSIUM CHLORIDE TABS 20 MEQ TABLET.ER (FP) PO ONE (13:37)
--- NOTE | 2017-09-06 13:39 | DS ---
Physical Examination Vital Signs: Vital Signs Temperature 98.0 F 09/06/17 09:44 Pulse Rate 62 09/06/17 09:44 Respiratory Rate 19 09/06/17 09:44 Blood Pressure 137/67 09/06/17 09:44 O2 Sat by Pulse Oximetry (%) 98 09/06/17 09:44 Constitutional: Yes: No Distress Neck: Yes: Supple Cardiovascular: Yes: Regular Rate and Rhythm Respiratory: Yes: CTA Bilaterally Gastrointestinal: Yes: Normal Bowel Sounds Extremities: Yes: WNL Neurological: Yes: Alert, Oriented Labs: CBC, BMP 09/06/17 05:35 09/06/17 05:35 Discharge Summary Reason For Visit: GI HEMORRHAGE Current Active Problems Acute blood loss anemia (Acute) GI bleed (Acute) - Instructions Diet, Activity, Other Instructions: soft diet fu gi 1 week Referrals: STAFF,NOT ON [Primary Care Provider] - April Velasquez MD [Staff Physician] - Disposition: HOME - Home Medications Comprehensive Discharge Medication List: Ambulatory Orders Pantoprazole Sodium [Protonix] 40 mg PO BID #60 tablet. 09/05/17 [facility]
[2017-09-06] MEDS ORDERED: PANTOPRAZOLE 40 MG TABLET (FP) PO SCH (22:00)
--- NOTE | 2017-09-07 10:14 | PATH ---
Surgical Pathology Report Patient Name: VAL POLLOCK [facility]. Rec. #: [id number] /Age/Gender: 1950 (Age: 67) / M Account: [id number] Location: [address] [place] [address]/[place] Taken: 09/04/2017 Received: 09/05/2017 Reported: 09/07/2017 Physicians: Crista Hua M.D. Specimen(s) Received BX ANTRUM Clinical History Preoperative diagnosis: Dark watery stool Postoperative diagnosis: Bleeding duodenal ulcer, diverticulosis, melena Final Diagnosis ANTRUM, BIOPSY: MILD CHRONIC GASTRITIS WITH FEATURES OF REACTIVE GASTROPATHY. IMMUNOSTAIN IS NEGATIVE FOR H. PYLORI ORGANISMS. Electronically Signed Emmy Gustafson M.D. Gross Description Received in formalin, labeled "biopsy antrum" are 3 flores, irregular portions of soft tissue ranging from 0.2-0.7 cm. in greatest dimension. The specimens are submitted in toto in one cassette. 09/05/2017 [facility]09/05/2017
== END 2017-09-06 17:39 | disposition home or self-care (01) | DRG 378 ==
LOC: JER 09:45 → JERBED 15:12 → J4S 09-04 15:23
PROVIDERS: ADMIT Internal Medicine; ATTEND Internal Medicine
PROC: 3E0G8GC Introduction of Other Therapeutic Substance into Upper GI, Via Natural or Artificial Opening Endoscopic (ICD-10-PCS; 2017-09-04)
PROC: 0DD68ZX Extraction of Stomach, Via Natural or Artificial Opening Endoscopic, Diagnostic (ICD-10-PCS; 2017-09-04)
PROC: 0DJD8ZZ Inspection of Lower Intestinal Tract, Via Natural or Artificial Opening Endoscopic (ICD-10-PCS; 2017-09-04)
PROC: 0W3P8ZZ Control Bleeding in Gastrointestinal Tract, Via Natural or Artificial Opening Endoscopic (ICD-10-PCS; principal; 2017-09-04 12:00)
DX: K26.4 Chronic or unspecified duodenal ulcer with hemorrhage (principal); D62 Acute posthemorrhagic anemia; I10 Essential (primary) hypertension; I45.10 Unspecified right bundle-branch block; K21.9 Gastro-esophageal reflux disease without esophagitis; F32.9 Major depressive disorder, single episode, unspecified; K57.30 Diverticulosis of large intestine without perforation or abscess without bleeding
CPT/HCPCS: 36415; 36430; 71045-TC; 80053; 82272; 82728; 82962; 83540; 83550; 84484; 85025; 85027; 85610; 85730; 86850; 86900; 86901; 86922; 88305-TC; 93005; 93010; 97116-GP; 99285-25; P9038; P9058

== ENCOUNTER 2017-09-11 09:56 | Inpatient (IN) | payer OTHER ==
[2017-09-11] MEDS ORDERED: SODIUM CHLORIDE 1,000 ML IV STA (10:23)
[2017-09-11 10:24] VITALS: BMI 41.5
[2017-09-11 11:14] LABS: CHLORIDE 112 mmol/L (98-107); POTASSIUM 4.3 mmol/L (3.5-5.1); SODIUM 140 mmol/L (136-145)
[2017-09-11 11:20] LABS: BASO % 0.5 % (0-2.0); EOS % 0.2 % (0-4.5); HEMATOCRIT 10.7 % (35.4-49); LYMPH % 6.7 % (8-40); MCH 30.2 pg (25.7-33.7); MCHC 33.2 g/dl (32.0-35.9); MEAN CELL VOLUME 90.9 fl (80-96); MEAN PLT VOLUME 8.6 fl (7.5-11.1); MONO % 4.8 % (3.8-10.2); NEUT % 87.8 % (42.8-82.8); PLATELET COUNT 152 K/MM3 (134-434); RBC 1.18 M/mm3 (4.00-5.60); RDW 15.3 % (11.9-15.9); WHITE BLOOD COUNT 6.3 K/mm3 (4.0-10.0)
[2017-09-11 11:21] LABS: ALBUMIN 2.1 g/dl (3.4-5.0); ALK PHOS 40 U/L (45-117); ANION GAP 11 (8-16); BILIRUBIN,TOTAL 0.2 mg/dL (0.2-1.0); BLOOD UREA NITROGEN 92 mg/dL (7-18); CO2 17 mmol/L (21-32); CREATININE 1.5 mg/dL (0.7-1.3); GLUCOSE,RANDOM 95 mg/dL (74-106); SGOT/AST 22 U/L (15-37); SGPT/ALT 23 U/L (12-78); TOT PROT 4.1 g/dl (6.4-8.2)
[2017-09-11 11:23] LABS: N-TERMINAL BNP 50.14 pg/ml (5-125)
[2017-09-11 11:26] LABS: HEMOGLOBIN 3.6 GM/dL (11.7-16.9)
[2017-09-11 11:27] LABS: INR 1.04 (0.82-1.09); PROTHROMBIN TIME (PATIENT) 11.7 SEC (9.98-11.88)
[2017-09-11 11:29] LABS: ACTIVATED PTT 23.7 SECONDS (26.9-34.4)
[2017-09-11] MEDS ORDERED: PANTOPRAZOLE SODIUM 40 MG in SODIUM CHLORIDE 100 ML IVPB ONE (11:29)
--- NOTE | 2017-09-11 11:35 | PDOC ---
History of Present Illness <Maritza Epps - Last Filed: 09/11/17 12:41> - History of Present Illness Initial Comments: 09/11/17 11:30 "The patient is a 67 year old male, with a significant past medical history of hypertension, GERD, and depression, with recent admission for UGI bleed, who presents to the emergency department with home health aide for syncopal episode. Pt's NETWORK SUPPORT SPECIALIST states that she found the patient on the toilet unresponsive after he had an episode of diarrhea. She does not know exactly how long he was unconscious but states that he began to wake up once EMS arrived. Pt denies any complaints currently but states that he has felt very weak since his discharge from the hospital. Pt states that since his discharge, he has continued to have BLACK stools. He denies abdominal pain. Denies N/V. He denies any recent fever, chills, headache, or dizziness. He denies any chest pain, shortness of breath, diaphoresis, or palpitations. He denies any dysuria, hematuria, frequency, or urgency. He denies any recent travel or sick contacts. In ER, pt was found to be hypotensive to 80s systolic. This responded to 1L NS bolus and improved to 100/60. Allergies: NKDA Past Surgical History: Appendectomy Social History: Non smoker. No ETOH or recreational drug use. <Dino Jones - Last Filed: 09/15/17 07:31> - General Chief Complaint: Blood Pressure Problem Stated Complaint: Blood Pressure Problem Time Seen by Provider: 09/11/17 10:15 Past History <Maritza Epps - Last Filed: 09/11/17 12:41> - Past Medical History COPD: No HTN: Yes Psychiatric Problems: Yes (DEPRESSION, ANXIETY) - Surgical History Appendectomy: Yes - Immunization History Immunization Up to Date: No - Suicide/Smoking/Psychosocial Hx Smoking History: Never smoked Have you smoked in the past 12 months: No Information on smoking cessation initiated: No Hx Alcohol Use: No Drug/Substance Use Hx: No Substance Use Type: None <Dino Jones - Last Filed: 09/15/17 07:31> - Past Medical History Allergies/Adverse Reactions: Allergies Allergy/AdvReac Type Severity Reaction Status Date / Time No Known Allergies Allergy Verified 09/11/17 09:59 Home Medications: Ambulatory Orders Pantoprazole Sodium [Protonix] 40 mg PO BID #60 tablet. 09/05/17 Pantoprazole Sodium [Protonix -] 40 mg PO BID #60 tablet.ec 09/14/17 Sucralfate Oral Suspension [Carafate Oral Suspension -] 1 gm PO QID #30 ml 09/14 Review of Systems - Review of Systems Comments:: 09/11/17 11:35 """GENERAL/CONSTITUTIONAL: (+) weakness. No fever or chills. HEAD, EYES, EARS, NOSE AND THROAT: No change in vision. No ear pain or discharge. No sore throat. CARDIOVASCULAR: No chest pain or shortness of breath. RESPIRATORY: No cough, wheezing, or hemoptysis. GASTROINTESTINAL: (+) diarrhea, black stools. No nausea, vomiting, or constipation. GENITOURINARY: No dysuria, frequency, or change in urination. MUSCULOSKELETAL: No joint or muscle swelling or pain. No neck or back pain. SKIN: No rash NEUROLOGIC: (+) syncope. No headache, vertigo, or change in strength/sensation. ENDOCRINE: No increased thirst. No abnormal weight change. HEMATOLOGIC/LYMPHATIC: No anemia, easy bleeding, or history of blood clots. ALLERGIC/IMMUNOLOGIC: No hives or skin allergy. """ <Dino Jones - Last Filed: 09/15/17 07:31> *Physical Exam - Vital Signs Last Vital Signs Temp Pulse Resp BP Pulse Ox 97.3 F L 72 18 90/47 100 09/11/17 09:56 09/11/17 09:56 09/11/17 09:56 09/11/17 09:56 09/11/17 09:56 <Marizta Epps - Last Filed: 09/11/17 12:41> - Vital Signs Last Vital Signs Temp Pulse Resp BP Pulse Ox 97.3 F L 72 18 90/47 100 09/11/17 09:56 09/11/17 09:56 09/11/17 09:56 09/11/17 09:56 09/11/17 09:56 - Physical Exam Comments: 09/11/17 11:35 GENERAL: (+) marked pallor, Awake, alert, and fully oriented, in no acute distress HEAD: No signs of trauma EYES: PERRLA, EOMI, sclera anicteric, conjunctiva clear ENT: Auricles normal inspection, hearing grossly normal, nares patent, oropharynx clear without exudates. Moist mucosa NECK: Nontender, no stepoffs, Normal ROM, supple, no lymphadenopathy, JVD, or masses LUNGS: Breath sounds equal, clear to auscultation bilaterally. No wheezes, and no crackles HEART: Regular rate and rhythm, normal S1 and S2, no murmurs, rubs or gallops ABDOMEN: Soft, nontender, normoactive bowel sounds. No guarding, no rebound. No masses EXTREMITIES: Normal range of motion, no edema. No clubbing or cyanosis. No cords, erythema, or tenderness NEUROLOGICAL: Cranial nerves II through XII intact. 5/5 strength and sensation in all extremities, Normal speech, normal gait SKIN: Warm, Dry, normal turgor, no rashes or lesions noted. <Ou,Dino - Last Filed: 09/15/17 07:31> Heart Score/ECG Review - ECG Impressions Comment:: 09/11/17 11:36 NSR, no JAIME/STDs, no TWIs, axis wnl, intervals wnl, rate87 <Ou,Dino - Last Filed: 09/15/17 07:31> ED Treatment Course - LABORATORY CBC & Chemistry Diagram: 09/11/17 10:40 09/11/17 10:40 - ADDITIONAL ORDERS Additional order review: Laboratory Results 09/11/17 09/11/17 09/11/17 10:40 10:40 10:40 PT with INR INR PTT (Actin FS) Sodium 140 Potassium 4.3 D Chloride 112 H Carbon Dioxide 17 L D Anion Gap 11 BUN 92 H D Creatinine 1.5 H D Creat Clearance w eGFR 46.68 Random Glucose 95 Lactic Acid 1.1 Calcium 7.0 L Total Bilirubin 0.2 D AST 22 ALT 23 D Alkaline Phosphatase 40 L D Creatine Kinase Troponin I B-Natriuretic Peptide Total Protein 4.1 L Albumin 2.1 L Blood Type O POSITIVE Antibody Screen Negative Crossmatch See Detail 09/11/17 09/11/17 10:40 10:40 PT with INR 11.70 INR 1.04 PTT (Actin FS) 23.7 L Sodium Potassium Chloride Carbon Dioxide Anion Gap BUN Creatinine Creat Clearance w eGFR Random Glucose Lactic Acid Calcium Total Bilirubin AST ALT Alkaline Phosphatase Creatine Kinase 265 Troponin I < 0.02 B-Natriuretic Peptide 50.14 Total Protein Albumin Blood Type Antibody Screen Crossmatch 09/11/17 10:40 RBC 1.18 L D MCV 90.9 MCHC 33.2 RDW 15.3 MPV 8.6 Neutrophils % 87.8 H D Lymphocytes % 6.7 L D Monocytes % 4.8 Eosinophils % 0.2 D Basophils % 0.5 - Medications Given in the ED: ED Medications Discontinued Medications Generic Name Dose Route Start Last Admin Trade Name Freq PRN Reason Stop Dose Admin Sodium Chloride 1,000 mls @ 1,000 mls/hr 09/11/17 10:23 09/11/17 10:45 Normal Saline - IV 09/11/17 11:22 1,000 mls/hr ASDIR STA Administration <Maritza Epps - Last Filed: 09/11/17 12:41> - LABORATORY CBC & Chemistry Diagram: 09/14/17 13:40 09/13/17 14:30 - ADDITIONAL ORDERS Additional order review: Laboratory Results 09/11/17 09/11/17 09/11/17 10:40 10:40 10:40 PT with INR INR Sodium 140 Potassium 4.3 D Chloride 112 H Lactic Acid 1.1 Crossmatch See Detail 09/11/17 10:40 PT with INR 11.70 INR 1.04 Sodium Potassium Chloride Lactic Acid Crossmatch 09/11/17 10:40 RBC 1.18 L D MCV 90.9 MCHC 33.2 RDW 15.3 MPV 8.6 Neutrophils % 87.8 H D Lymphocytes % 6.7 L D Monocytes % 4.8 Eosinophils % 0.2 D Basophils % 0.5 - RADIOLOGY Radiology Studies Ordered: Category Date Time Status CHEST X-RAY PORTABLE* [RAD] Stat Radiology 09/11/17 10:23 Taken - Medications Given in the ED: ED Medications Discontinued Medications Generic Name Dose Route Start Last Admin Trade Name Freq PRN Reason Stop Dose Admin Sodium Chloride 1,000 mls @ 1,000 mls/hr 09/11/17 10:23 09/11/17 10:45 Normal Saline - IV 09/11/17 11:22 1,000 mls/hr ASDIR STA Administration <Dino Jones - Last Filed: 09/15/17 07:31> Medical Decision Making - Medical Decision Making 09/11/17 11:[address] Starkey, GI specialist 09/11/17 12:43 Dr. Velasquez was called regarding this patient's admission. The case was discussed and she accepts the patient for admission to [facility]. <Maritza Epps - Last Filed: 09/11/17 12:41> - Critical Care Time Total Critical Care Time (minutes): 60 Critical Care Statement: The care of this patient involved high complexity decision making to prevent further life threatening deterioration of the patient 's condition and/or to evaluate & treat vital organ system(s) failure or risk of failure. - Medical Decision Making 09/11/17 11:36 67 M with recent admission for UGIB presenting to ER with syncopal episode, found to be hypotensive upon arrival. On exam, pt with marked pallor, concerning for symptomatic anemia. Pt reporting continued black stools, suggesting persistent UGI bleed. - Labs, T&S, coags - IVF, tranfuse PRN - GI consult - Admit 09/11/17 11:45 Pt with Hb 3.6. Spoke with Dr. Starkey, who scoped pt during previous admission. Given h/o black stools and severe anemia today, Dr. Starkey would like to take pt to endoscopy today. I spoke with Dr. Du, who has accepted pt to ICU. Pt started on octreotide and pantoprazole gtt. Admitted to Dr. Velasquez. Case discussed in detail with admitting physician including history, physical exam and ancillary studies. Admitting physician has assumed care for the patient and will follow all pending diagnostics and complete the evaluation and treatment. <Dino Jones - Last Filed: 09/15/17 07:31> *DC/Admit/Observation/Transfer <Maritza Epps - Last Filed: 09/11/17 12:41> - Discharge Dispostion Admit: Yes - Attestations Physician Attestion: 09/11/17 12:44 I, Dr. Dino Jones MD, attest that this document has been prepared under my direction and personally reviewed by me in its entirety. I further attest, that it accurately reflects all work, treatment, procedures and medical decision -making performed by me. <Dino Jones - Last Filed: 09/15/17 07:31> Diagnosis at time of Disposition: Severe anemia GI bleed Qualifiers: GI bleed type/associated pathology: melena Qualified Code(s): K92.1 - Melena
[2017-09-11] MEDS ORDERED: PANTOPRAZOLE SODIUM 80 MG in SODIUM CHLORIDE 100 ML IVPB SCH (11:45)
[2017-09-11 11:49] LABS: URINE APPEARANCE CLEAR; URINE BILIRUBIN NEGATIVE (NEGATIVE); URINE BLOOD NEGATIVE (NEGATIVE); URINE COLOR COLORLESS; URINE GLUCOSE (UA) NEGATIVE (NEGATIVE); URINE KETONE NEGATIVE (NEGATIVE); URINE LEUK ESTERASE NEGATIVE (NEGATIVE); URINE NITRITE NEGATIVE (NEGATIVE); URINE PROTEIN NEGATIVE (NEGATIVE); URINE UROBILINOGEN NEGATIVE mg/dL (0.2-1.0)
--- NOTE | 2017-09-11 12:18 | CON.GI ---
Consult Consult Specialty:: GI - History of Present Illness History of Present Illness: The patient is known to GI service from recent admission for upper GI bleeding. A small duodenal ulcer with visible blood vessel was found in the proximla small bowel, injected and clipped. The patient was discharged home after a few days of observation and continuously stable Hgb. He comes in to ED today c/o weakens. Found to have Hgb <4 g/dl, normocytic, normochromic. BUN 92, Cr 1.5, Normal PT/INR. The patient denies nausea, vomiting, hematochezia, hematemesis, melena, or abdominal pain. Did not continue with the prescribed PPI, and Iron - History Source History Provided By: Patient, Family Member, Medical Record - Past Medical History Cardio/Vascular: Yes: HTN Renal/: Yes: Renal Inusuff Psych: Yes: Depression - Alcohol/Substance Use Hx Alcohol Use: No - Smoking History Smoking history: Never smoked Have you smoked in the past 12 months: No Home Medications - Allergies Allergies/Adverse Reactions: Allergies Allergy/AdvReac Type Severity Reaction Status Date / Time No Known Allergies Allergy Verified 09/11/17 09:59 - Home Medications Home Medications: Ambulatory Orders Pantoprazole Sodium [Protonix] 40 mg PO BID #60 tablet. 09/05/17 Family Disease History - Family Disease History Family History: Unremarkable (non-contributory) Review of Systems Findings/Remarks: please refer to HPI, H&P Physical Exam-GI Vital Signs: Vital Signs Temperature 97.3 F L 09/11/17 10:23 Pulse Rate 82 09/11/17 10:23 Respiratory Rate 19 09/11/17 10:23 Blood Pressure 103/58 09/11/17 10:23 O2 Sat by Pulse Oximetry (%) 100 09/11/17 10:23 Constitutional: Yes: No Distress, Calm, Pallor Eyes: Yes: Conjunctiva Clear HENT: Yes: Atraumatic Cardiovascular: Yes: Regular Rate and Rhythm ...Auscultate: Yes: Normoactive Bowel Sounds ...Palpate: Yes: Soft. No: Firm/Rigid, Guarding, Tenderness, Tenderness, Epigastium, Tenderness, Rebound ...Rectal Exam: Yes: Guaiac Positive (brown) Neurological: Yes: Alert, Oriented Labs: CBC, BMP 09/11/17 10:40 INR, PTT INR 1.04 (0.82-1.09) 09/11/17 10:40 CBCD WBC 6.3 K/mm3 (4.0-10.0) 09/11/17 10:40 RBC 1.18 M/mm3 (4.00-5.60) L D 09/11/17 10:40 Hgb 3.6 GM/dL (11.7-16.9) L* D 09/11/17 10:40 Hct 10.7 % (35.4-49) L 09/11/17 10:40 MCV 90.9 fl (80-96) 09/11/17 10:40 MCHC 33.2 g/dl (32.0-35.9) 09/11/17 10:40 RDW 15.3 % (11.9-15.9) 09/11/17 10:40 Plt Count 152 K/MM3 (134-434) 09/11/17 10:40 MPV 8.6 fl (7.5-11.1) 09/11/17 10:40 CMP Sodium 140 mmol/L (136-145) 09/11/17 10:40 Potassium 4.3 mmol/L (3.5-5.1) D 09/11/17 10:40 Chloride 112 mmol/L (98-107) H 09/11/17 10:40 Carbon Dioxide 17 mmol/L (21-32) L D 09/11/17 10:40 Anion Gap 11 (8-16) 09/11/17 10:40 BUN 92 mg/dL (7-18) H D 09/11/17 10:40 Creatinine 1.5 mg/dL (0.7-1.3) H D 09/11/17 10:40 Creat Clearance w eGFR 46.68 (>60) 09/11/17 10:40 Calcium 7.0 mg/dL (8.5-10.1) L 09/11/17 10:40 Total Bilirubin 0.2 mg/dL (0.2-1.0) D 09/11/17 10:40 AST 22 U/L (15-37) 09/11/17 10:40 ALT 23 U/L (12-78) D 09/11/17 10:40 Alkaline Phosphatase 40 U/L (45-117) L D 09/11/17 10:40 Total Protein 4.1 g/dl (6.4-8.2) L 09/11/17 10:40 Albumin 2.1 g/dl (3.4-5.0) L 09/11/17 10:40 Problem List - Problems (1) Severe anemia Code(s): D64.9 - ANEMIA, UNSPECIFIED Assessment/Plan Normocytic, normochromic anemia in a 67 yom with history of high risk duodenal ulcer. NPO x 18 hrs R/o upper GI rebleed. Transfuse to above 7g/dl PPI and octreotide drips Carafate EGD CBC q 6 hrs Iron profile CMP Renal insufficiency, may be contributing to the anemia. Consult nephrology
[2017-09-11 12:39] LABS: BASO % 0.3 % (0-2.0); EOS % 0.1 % (0-4.5); HEMATOCRIT 11.3 % (35.4-49); LYMPH % 6.3 % (8-40); MCH 30.2 pg (25.7-33.7); MEAN CELL VOLUME 91.7 fl (80-96); MONO % 3.5 % (3.8-10.2); NEUT % 89.8 % (42.8-82.8); PLATELET COUNT 163 K/MM3 (134-434); RBC 1.23 M/mm3 (4.00-5.60); RDW 15.9 % (11.9-15.9); WHITE BLOOD COUNT 9.5 K/mm3 (4.0-10.0)
[2017-09-11] MEDS: PANTOPRAZOLE SODIUM 160 MG in DEXTROSE 5%-WATER - 290 ML IVPB SCH (12:41)
[2017-09-11 12:47] LABS: HEMOGLOBIN 3.7 GM/dL (11.7-16.9)
--- NOTE | 2017-09-11 13:55 | PROC ---
Endoscopy Procedure Endoscopy procedure completed. Please see scanned procedure report. Active, oozing from previously clipped duodenal ulcer. 9 cc of epinephrine and dditional clips applies successfully Complete hemostasis achieved. Gastric mucosal biopsies taken Receiving 3rd unit of PRBC Hemodynamically stable ICU monitoring Continue octreotide and PPI drips. Bowel rest today
--- NOTE | 2017-09-11 16:08 | HP ---
Admitting History and Physical - Primary Care Physician PCP: April Velasquez - Admission History of Present Illness: 67 year old male, with a significant past medical history of hypertension, GERD , and depression, with recent admission for UGI bleed, who presents to the emergency department with home health aide for syncopal episode. Pt's IMAGING ACCOUNT MANAGER states that she found the patient on the toilet unresponsive after he had an episode of diarrhea. She does not know exactly how long he was unconscious but states that he began to wake up once EMS arrived. Pt denies any complaints currently but states that he has felt very weak since his discharge from the hospital. Pt states that since his discharge, he has continued to have BLACK stools. He denies abdominal pain. Denies N/V. - Past Medical History Cardiovascular: Yes: HTN Gastrointestinal: Yes: GI Bleed Renal/: Yes: Renal Inusuff Psych: Yes: Depression - Smoking History Smoking history: Never smoked Have you smoked in the past 12 months: No - Alcohol/Substance Use Hx Alcohol Use: No Home Medications - Allergies Allergies/Adverse Reactions: Allergies Allergy/AdvReac Type Severity Reaction Status Date / Time No Known Allergies Allergy Verified 09/11/17 09:59 - Home Medications Home Medications: Ambulatory Orders Pantoprazole Sodium [Protonix] 40 mg PO BID #60 tablet. 09/05/17 Physical Examination Vital Signs: Vital Signs Temperature 98 F 09/11/17 15:08 Pulse Rate 80 09/11/17 15:08 Respiratory Rate 18 09/11/17 15:08 Blood Pressure 112/65 09/11/17 15:08 O2 Sat by Pulse Oximetry (%) 96 09/11/17 12:43 Constitutional: Yes: Calm HENT: Yes: Atraumatic Neck: Yes: Supple Cardiovascular: Yes: Regular Rate and Rhythm Respiratory: Yes: CTA Bilaterally Gastrointestinal: Yes: Normal Bowel Sounds Extremities: Yes: WNL Neurological: Yes: Alert, Oriented Labs: CBC, BMP 09/11/17 11:30 09/11/17 10:40 Problem List - Problems (1) GI bleed Assessment/Plan: s/p egd see gi report npo ivf iv protonix Code(s): K92.2 - GASTROINTESTINAL HEMORRHAGE, UNSPECIFIED Qualifiers: GI bleed type/associated pathology: melena Qualified Code(s): K92.1 - Melena (2) Severe anemia Assessment/Plan: getting blood transfusion will follow up cbc npo Code(s): D64.9 - ANEMIA, UNSPECIFIED (3) Acute blood loss anemia Code(s): D62 - ACUTE POSTHEMORRHAGIC ANEMIA Assessment/Plan Laboratory Tests 09/11/17 09/11/17 09/11/17 10:40 10:40 10:40 WBC 6.3 RBC 1.18 L D Hgb 3.6 L* D Hct 10.7 L MCV 90.9 MCH 30.2 MCHC 33.2 RDW 15.3 Plt Count 152 MPV 8.6 Neutrophils % 87.8 H D Lymphocytes % 6.7 L D Monocytes % 4.8 Eosinophils % 0.2 D Basophils % 0.5 PT with INR 11.70 INR 1.04 PTT (Actin FS) 23.7 L Sodium Potassium Chloride Carbon Dioxide Anion Gap BUN Creatinine Creat Clearance w eGFR Random Glucose Lactic Acid Calcium Total Bilirubin AST ALT Alkaline Phosphatase Creatine Kinase 265 Creatine Kinase Index 3.1 CK-MB (CK-2) 8.453 H Troponin I < 0.02 B-Natriuretic Peptide 50.14 Total Protein Albumin Urine Color Urine Appearance Urine pH Ur Specific [place] Urine Protein Urine Glucose (UA) Urine Ketones Urine Blood Urine Nitrite Urine Bilirubin Urine Urobilinogen Ur Leukocyte Esterase Blood Type Antibody Screen Crossmatch 09/11/17 09/11/17 09/11/17 10:40 10:40 10:40 WBC RBC Hgb Hct MCV MCH MCHC RDW Plt Count MPV Neutrophils % Lymphocytes % Monocytes % Eosinophils % Basophils % PT with INR INR PTT (Actin FS) Sodium 140 Potassium 4.3 D Chloride 112 H Carbon Dioxide 17 L D Anion Gap 11 BUN 92 H D Creatinine 1.5 H D Creat Clearance w eGFR 46.68 Random Glucose 95 Lactic Acid 1.1 Calcium 7.0 L Total Bilirubin 0.2 D AST 22 ALT 23 D Alkaline Phosphatase 40 L D Creatine Kinase Creatine Kinase Index CK-MB (CK-2) Troponin I B-Natriuretic Peptide Total Protein 4.1 L Albumin 2.1 L Urine Color Urine Appearance Urine pH Ur Specific [place] Urine Protein Urine Glucose (UA) Urine Ketones Urine Blood Urine Nitrite Urine Bilirubin Urine Urobilinogen Ur Leukocyte Esterase Blood Type O POSITIVE Antibody Screen Negative Crossmatch See Detail 09/11/17 09/11/17 11:30 11:40 WBC 9.5 D RBC 1.23 L Hgb 3.7 L* Hct 11.3 L MCV 91.7 MCH 30.2 MCHC 33.0 RDW 15.9 Plt Count 163 MPV 8.0 Neutrophils % 89.8 H Lymphocytes % 6.3 L Monocytes % 3.5 L Eosinophils % 0.1 Basophils % 0.3 PT with INR INR PTT (Actin FS) Sodium Potassium Chloride Carbon Dioxide Anion Gap BUN Creatinine Creat Clearance w eGFR Random Glucose Lactic Acid Calcium Total Bilirubin AST ALT Alkaline Phosphatase Creatine Kinase Creatine Kinase Index CK-MB (CK-2) Troponin I B-Natriuretic Peptide Total Protein Albumin Urine Color Colorless Urine Appearance Clear Urine pH 5.0 Ur Specific [place] 1.008 Urine Protein Negative Urine Glucose (UA) Negative Urine Ketones Negative Urine Blood Negative Urine Nitrite Negative Urine Bilirubin Negative Urine Urobilinogen Negative Ur Leukocyte Esterase Negative Blood Type Antibody Screen Crossmatch Active Medications Generic Name Dose Route Start Last Admin Trade Name Freq PRN Reason Stop Dose Admin Octreotide Acetate 1,200 mcg/ 500 mls @ 20.83 mls/hr 09/11/17 11:45 Dextrose IVPB ASDIR ELGIN Protocol 50 MCG/HR Pantoprazole Sodium 160 mg/ 290 mls @ 14.5 mls/hr 09/11/17 12:15 09/11/17 12: 41 Dextrose IVPB 14.5 mls/hr Q20H ELGIN Administration Sucralfate 1 gm 09/11/17 18:00 Carafate Oral Suspension - PO QID [facility] icu cc time 55 min
[2017-09-11] MEDS ORDERED: DEXTROSE 5%-0.45% SALINE 1,000 ML IV SCH (16:15)
[2017-09-11] MEDS: OCTREOTIDE ACETATE 1,200 MCG in DEXTROSE 5%-WATER - 488 ML IVPB SCH (16:22)
[2017-09-11] MEDS ORDERED: CHLORHEXIDINE GLUCONATE 4% CLEANSER FOR DECOLONIZATION TP SCH (22:00)
[2017-09-11 22:10] LABS: HEMATOCRIT 26.9 % (35.4-49); MCH 30.6 pg (25.7-33.7); MCHC 33.6 g/dl (32.0-35.9); MEAN CELL VOLUME 91.2 fl (80-96); MEAN PLT VOLUME 8.7 fl (7.5-11.1); PLATELET COUNT 146 K/MM3 (134-434); RBC 2.95 M/mm3 (4.00-5.60); RDW 14.2 % (11.9-15.9); WHITE BLOOD COUNT 8.2 K/mm3 (4.0-10.0)
[2017-09-12] MEDS: SUCRALFATE 1 GM/10 ML UNIT DOSE CUPS PO SCH ×6 (05:54→22:59)
[2017-09-12 07:29] LABS: CHLORIDE 116 mmol/L (98-107); POTASSIUM 4.5 mmol/L (3.5-5.1); SODIUM 146 mmol/L (136-145)
[2017-09-12 07:38] LABS: ALBUMIN 2.3 g/dl (3.4-5.0); ALK PHOS 61 U/L (45-117); ANION GAP 7 (8-16); BILIRUBIN,TOTAL 0.4 mg/dL (0.2-1.0); BLOOD UREA NITROGEN 54 mg/dL (7-18); CALCIUM 7.4 mg/dL (8.5-10.1); CO2 23 mmol/L (21-32); CREATININE 1.3 mg/dL (0.7-1.3); GLUCOSE,RANDOM 154 mg/dL (74-106); MAGNESIUM 2.1 mg/dL (1.8-2.4); PHOSPHOROUS 3.4 mg/dL (2.5-4.9); SGOT/AST 28 U/L (15-37); SGPT/ALT 30 U/L (12-78); TOT PROT 4.3 g/dl (6.4-8.2)
--- NOTE | 2017-09-12 08:03 | EKG ---
Test Reason : Blood Pressure : / mmHG Vent. Rate : 087 BPM Atrial Rate : 087 BPM P-R Int : 162 ms QRS Dur : 104 ms QT Int : 382 ms P-R-T Axes : 034 -24 051 degrees QTc Int : 459 ms NORMAL SINUS RHYTHM NORMAL ECG WHEN COMPARED WITH ECG OF 03-SEP-2017 11:01, NO SIGNIFICANT CHANGE WAS FOUND Confirmed by STARR JACOBO MD ([id number]) on 09/12/2017 8:03:35 AM Referred By: Confirmed By:STARR JACOBO MD
[2017-09-12 08:04] LABS: BASO % 0.7 % (0-2.0); EOS % 2.1 % (0-4.5); HEMOGLOBIN 8.5 GM/dL (11.7-16.9); LYMPH % 12.2 % (8-40); MCH 30.1 pg (25.7-33.7); MCHC 33.8 g/dl (32.0-35.9); MEAN CELL VOLUME 89.2 fl (80-96); MEAN PLT VOLUME 8.6 fl (7.5-11.1); MONO % 6.1 % (3.8-10.2); NEUT % 78.9 % (42.8-82.8); PLATELET COUNT 165 K/MM3 (134-434); RBC 2.81 M/mm3 (4.00-5.60); RDW 14.8 % (11.9-15.9); WHITE BLOOD COUNT 7.3 K/mm3 (4.0-10.0)
[2017-09-12] MEDS: MUPIROCIN 2% TOPICAL OINTMENT FOR DECOLONIZATION NS SCH ×2 (10:00)
--- NOTE | 2017-09-12 10:55 | PN ---
Progress Note, Physician History of Present Illness: Pain-free. No events, comfortable. - Current Medication List Current Medications: Active Medications Chlorhexidine Gluconate (Hibiclens For Decolonization -) 1 applic TP HS [facility] Last Admin: 09/12/17 00:00 Dose: 1 applic Octreotide Acetate 1,200 mcg/ (Dextrose) 500 mls @ 20.83 mls/hr IVPB ASDIR ELGIN ; 50 MCG/HR PRN Reason: Protocol Last Admin: 09/11/17 16:22 Dose: 20.83 mls/hr Pantoprazole Sodium 160 mg/ (Dextrose) 290 mls @ 14.5 mls/hr IVPB Q20H [facility] Last Admin: 09/11/17 12:41 Dose: 14.5 mls/hr Dextrose/Sodium Chloride (D5-1/2ns -) 1,000 mls @ 75 mls/hr IV ASDIR ELGIN Last Admin: 09/11/17 16:23 Dose: 75 mls/hr Mupirocin (Bactroban Ointment (For Decolonization) -) 1 applic NS BID [facility] Stop: 09/16/17 21:59 Last Admin: 09/12/17 00:00 Dose: 1 units Sucralfate (Carafate Oral Suspension -) 1 gm PO QID [facility] Last Admin: 09/12/17 05:54 Dose: Not Given - Objective Vital Signs: Vital Signs Temperature 98.4 F 09/12/17 09:52 Pulse Rate 74 09/12/17 09:52 Respiratory Rate 24 09/12/17 09:52 Blood Pressure 115/64 09/12/17 09:52 O2 Sat by Pulse Oximetry (%) 100 09/11/17 23:10 Constitutional: Yes: No Distress, Calm Eyes: Yes: Conjunctiva Clear HENT: Yes: Atraumatic Neck: Yes: Supple Cardiovascular: Yes: Regular Rate and Rhythm Respiratory: Yes: Regular Gastrointestinal: Yes: Soft, Abdomen, Obese. No: Distention, Tenderness, Tenderness, Rebound, Vomiting Neurological: Yes: Alert, Oriented Labs: CBC, BMP 09/12/17 06:35 09/12/17 06:35 INR, PTT INR 1.04 (0.82-1.09) 09/11/17 10:40 CBCD WBC 7.3 K/mm3 (4.0-10.0) 09/12/17 06:35 RBC 2.81 M/mm3 (4.00-5.60) L 09/12/17 06:35 Hgb 8.5 GM/dL (11.7-16.9) L 09/12/17 06:35 Hct 25.0 % (35.4-49) L 09/12/17 06:35 MCV 89.2 fl (80-96) 09/12/17 06:35 MCHC 33.8 g/dl (32.0-35.9) 09/12/17 06:35 RDW 14.8 % (11.9-15.9) 09/12/17 06:35 Plt Count 165 K/MM3 (134-434) 09/12/17 06:35 MPV 8.6 fl (7.5-11.1) 09/12/17 06:35 CMP Sodium 146 mmol/L (136-145) H 09/12/17 06:35 Potassium 4.5 mmol/L (3.5-5.1) 09/12/17 06:35 Chloride 116 mmol/L (98-107) H 09/12/17 06:35 Carbon Dioxide 23 mmol/L (21-32) D 09/12/17 06:35 Anion Gap 7 (8-16) L 09/12/17 06:35 BUN 54 mg/dL (7-18) H D 09/12/17 06:35 Creatinine 1.3 mg/dL (0.7-1.3) 09/12/17 06:35 Creat Clearance w eGFR 55.06 (>60) 09/12/17 06:35 Calcium 7.4 mg/dL (8.5-10.1) L 09/12/17 06:35 Total Bilirubin 0.4 mg/dL (0.2-1.0) D 09/12/17 06:35 AST 28 U/L (15-37) D 09/12/17 06:35 ALT 30 U/L (12-78) D 09/12/17 06:35 Alkaline Phosphatase 61 U/L (45-117) D 09/12/17 06:35 Total Protein 4.3 g/dl (6.4-8.2) L 09/12/17 06:35 Albumin 2.3 g/dl (3.4-5.0) L 09/12/17 06:35 Problem List - Problems (1) Severe anemia Code(s): D64.9 - ANEMIA, UNSPECIFIED (2) Duodenal ulcer Code(s): K26.9 - DUODENAL ULCER, UNSP ACUTE OR CHRONIC, W/O HEMOR OR PERF (3) GI bleed Code(s): K92.2 - GASTROINTESTINAL HEMORRHAGE, UNSPECIFIED Qualifiers: GI bleed type/associated pathology: melena Qualified Code(s): K92.1 - Melena (4) Acute blood loss anemia Code(s): D62 - ACUTE POSTHEMORRHAGIC ANEMIA Assessment/Plan Clear liquid PPI PO octreotide drips Carafate EGD CBC q 6 hrs Iron profile CMP Renal insufficiency, may be contributing to the anemia. Consult nephrology
[2017-09-12] MEDS ORDERED: PANTOPRAZOLE 40 MG TABLET (FP) PO SCH (11:00)
[2017-09-12] MEDS ORDERED: PT OWN MED DRAWER 7, Y5N ONE (11:19)
--- NOTE | 2017-09-12 12:24 | PN ---
Progress Note, Physician - Current Medication List Current Medications: Active Medications Chlorhexidine Gluconate (Hibiclens For Decolonization -) 1 applic TP HS [facility] Last Admin: 09/12/17 00:00 Dose: 1 applic Octreotide Acetate 1,200 mcg/ (Dextrose) 500 mls @ 20.83 mls/hr IVPB ASDIR ELGIN ; 50 MCG/HR PRN Reason: Protocol Last Admin: 09/11/17 16:22 Dose: 20.83 mls/hr Dextrose/Sodium Chloride (D5-1/2ns -) 1,000 mls @ 75 mls/hr IV ASDIR ELGIN Last Admin: 09/11/17 16:23 Dose: 75 mls/hr Mupirocin (Bactroban Ointment (For Decolonization) -) 1 applic NS BID [facility] Stop: 09/16/17 21:59 Last Admin: 09/12/17 00:00 Dose: 1 units Pantoprazole Sodium (Protonix -) 40 mg PO BID [facility] Sucralfate (Carafate Oral Suspension -) 1 gm PO QID [facility] Last Admin: 09/12/17 11:21 Dose: 1 gm - Objective Vital Signs: Vital Signs Temperature 98.4 F 09/12/17 09:52 Pulse Rate 76 09/12/17 11:55 Respiratory Rate 26 H 09/12/17 11:55 Blood Pressure 126/68 09/12/17 11:55 O2 Sat by Pulse Oximetry (%) 100 09/11/17 23:10 Labs: CBC, BMP 09/12/17 06:35 09/12/17 06:35 INR, PTT INR 1.04 (0.82-1.09) 09/11/17 10:40
[2017-09-12] MEDS: OCTREOTIDE ACETATE 1,200 MCG in DEXTROSE 5%-WATER - 488 ML IVPB SCH ×2 (12:50→14:00)
[2017-09-12] MEDS: PANTOPRAZOLE SODIUM 160 MG in DEXTROSE 5%-WATER - 290 ML IVPB SCH (13:48)
[2017-09-12] MEDS: DEXTROSE 5%-0.45% SALINE 1,000 ML IV SCH (14:00)
--- NOTE | 2017-09-12 14:39 | PN ---
Teaching Attending Note Name of Resident: Coral Hastings ATTENDING PHYSICIAN STATEMENT I saw and evaluated the patient. I reviewed the resident's note and discussed the case with the resident. I agree with the resident's findings and plan as documented. SUBJECTIVE: Pt seen and examined in the ICU. s/p EGD showing duodenal ulcer with visible vessel s/p epi injection/endoclip. Remains on protonix and octreotide gtts. H/H stable since endoscopy. Denies abdominal pain, shortness of breath or chest pain. OBJECTIVE: Last Vital Signs Temp Pulse Resp BP Pulse Ox 98.4 F 76 26 H 126/68 100 09/12/17 09:52 09/12/17 11:55 09/12/17 11:55 09/12/17 11:55 09/12/17 09:00 Intake & Output 09/09/17 09/10/17 09/11/17 09/12/17 23:59 23:59 23:59 23:59 Intake Total 1430 1318.8 Output Total 2450 4000 Balance -1020 -2681.2 Weight 89.358 kg 88.3 kg Gen: NAD at rest Heart: RRR Lung: decreased breath sounds at the bases Abd: soft, nontender Ext: no edema CBC, BMP 09/12/17 06:35 09/12/17 06:35 Active Medications Dextrose/Sodium Chloride (D5-1/2ns -) 1,000 mls @ 75 mls/hr IV ASDIR ELGIN Octreotide Acetate 1,200 mcg/ (Dextrose) 500 mls @ 20.83 mls/hr IVPB ASDIR ELGIN ; 50 MCG/HR PRN Reason: Protocol Pantoprazole Sodium (Protonix -) 40 mg PO BID [facility] Sucralfate (Carafate Oral Suspension -) 1 gm PO QID [facility]GIN ASSESSMENT AND PLAN: Duodenal Ulcer with Visible Vessel s/p EGD/epi injection/endoclip Acute Blood Loss Anemia - monitor H/H - transfuse as needed - protonix, octreotide gtts - carafate - PO when ok with GI - IVF - ensure large bore peripheral access - mechanical DVT prophylaxis
--- NOTE | 2017-09-12 14:56 | CONSULT ---
Consult Consult Specialty:: ICU - History of Present Illness Chief Complaint: Severe anemia secondary to upper GI bleed History of Present Illness: 67 yr old polish speaking man with hx of chronic gastritis, HTN, depresson, presents with PURCHASING/RECEIVING for syncope after a diarrhea. He was recently in at [facility] for UGIB (09/03-09/06) and found to have an ulcer with visible vessel, colonoscopy with mild diverticulosis. He was discharged with PO protonix. Since discharge he continued to have dark stools, without hematochezia. denies NSAID, hemoptysis/hematochezia, fever, n/v, dizziness, chest pain, sob. ED course: - he was found to be hypotensive to 80s systolic, with Hgb 3.6, which responded to 1L NS and transfusion of 5 units of blood. Endoscopy 09/12 revealed an active bleed, oozing from previously clipped duodenal ulcer. which was treated with 9 cc of epinephrine and additional clips. - History Source History Provided By: Patient Limitations to Obtaining History: No Limitations - Past Medical History Cardio/Vascular: Yes: HTN Gastrointestinal: Yes: GI Bleed Renal/: Yes: Renal Inusuff Heme/Onc: Yes: Anemia Psych: Yes: Depression - Past Surgical History Past Surgical History: Yes: Appendectomy - Alcohol/Substance Use Hx Alcohol Use: No - Smoking History Smoking history: Never smoked Have you smoked in the past 12 months: No Home Medications - Allergies Allergies/Adverse Reactions: Allergies Allergy/AdvReac Type Severity Reaction Status Date / Time No Known Allergies Allergy Verified 09/11/17 09:59 - Home Medications Home Medications: Ambulatory Orders Pantoprazole Sodium [Protonix] 40 mg PO BID #60 tablet. 09/05/17 Review of Systems - Review of Systems Constitutional: reports: No Symptoms Eyes: reports: No Symptoms HENT: reports: No Symptoms Neck: reports: No Symptoms Cardiovascular: denies: Chest Pain, Palpitations, Shortness of Breath Respiratory: denies: Cough, SOB Gastrointestinal: denies: Abdominal Pain, Bloating, Constipation, Diarrhea Genitourinary: reports: No Symptoms Musculoskeletal: reports: No Symptoms Neurological: reports: No Symptoms Endocrine: reports: No Symptoms Physical Exam Vital Signs: Vital Signs Temperature 98.4 F 09/12/17 09:52 Pulse Rate 76 09/12/17 11:55 Respiratory Rate 26 H 09/12/17 11:55 Blood Pressure 126/68 09/12/17 11:55 O2 Sat by Pulse Oximetry (%) 100 09/12/17 09:00 Constitutional: Yes: No Distress, Calm Eyes: Yes: Conjunctiva Clear, EOM Intact HENT: Yes: Atraumatic, Normocephalic Neck: Yes: Supple, Trachea Midline Cardiovascular: Yes: Regular Rate and Rhythm Respiratory: Yes: Regular, CTA Bilaterally Gastrointestinal: Yes: Normal Bowel Sounds, Soft Extremities: Yes: WNL Edema: No Peripheral Pulses WNL: Yes Labs: CBC, BMP 09/12/17 06:35 09/12/17 06:35 Assessment/Plan 67 yr old man admitted to [facility] with severe anemia due to UGIB 2/2 to chronic gastritis s/p endoscopic intervention of active duodenal ulcer. CV #Severe Anemia due to acute blood loss - improved with 5units of prbc's and endoscopic procedure. - advance to clear liquid diet as per GI - protonix 40mg po BID - carafate 1gm po QID - octreotide 50mcg/hr #Hypotension: stable, improved with prbc's due to volume depletion Renal #PARVIZ (Cr 1.5, baseline 1.0) - likely prerenal, improved today FEN/GI -D5-1/2 NS @75cc/hr, consider stopping once taking adequate po PPX -Holding anticoaguation at this time due to acute blood loss anemia, SCD's for DVt prophylaxis - protonix for GI prophylaxis Dispo: Patient is stable for further monitoring on med-surg floor. Thank you for this consultative opportunity. Visit type - Emergency Visit Emergency Visit: No - New Patient This patient is new to me today: Yes Date on this admission: 09/12/17 - Critical Care Critical Care patient: Yes Total Critical Care Time (in minutes): 36 Critical Care Statement: The care of this patient involved high complexity decision making to prevent further life threatening deterioration of the patient 's condition and/or to evaluate & treat vital organ system(s) failure or risk of failure.
--- NOTE | 2017-09-12 16:44 | PN ---
Progress Note, Physician History of Present Illness: feeling better - Current Medication List Current Medications: Active Medications Dextrose/Sodium Chloride (D5-1/2ns -) 1,000 mls @ 75 mls/hr IV ASDIR ELGIN Octreotide Acetate 1,200 mcg/ (Dextrose) 500 mls @ 20.83 mls/hr IVPB ASDIR ELGIN ; 50 MCG/HR PRN Reason: Protocol Last Admin: 09/12/17 14:00 Dose: 20.83 mls/hr Pantoprazole Sodium (Protonix -) 40 mg PO BID ELGIN Sucralfate (Carafate Oral Suspension -) 1 gm PO QID ELGIN - Objective Vital Signs: Vital Signs Temperature 98.2 F 09/12/17 14:51 Pulse Rate 71 09/12/17 14:51 Respiratory Rate 18 09/12/17 14:51 Blood Pressure 99/49 09/12/17 14:51 O2 Sat by Pulse Oximetry (%) 100 09/12/17 09:00 Constitutional: Yes: No Distress HENT: Yes: Atraumatic Neck: Yes: Supple Cardiovascular: Yes: Regular Rate and Rhythm Respiratory: Yes: CTA Bilaterally Gastrointestinal: Yes: Normal Bowel Sounds Extremities: Yes: WNL Neurological: Yes: Alert, Oriented Labs: CBC, BMP 09/12/17 06:35 09/12/17 06:35 INR, PTT INR 1.04 (0.82-1.09) 09/11/17 10:40 Problem List - Problems (1) GI bleed Assessment/Plan: h/h stable s/p prbc transfusion iv protonix Code(s): K92.2 - GASTROINTESTINAL HEMORRHAGE, UNSPECIFIED Qualifiers: GI bleed type/associated pathology: melena Qualified Code(s): K92.1 - Melena (2) Severe anemia Assessment/Plan: s/p blood transfusion h/h improved Code(s): D64.9 - ANEMIA, UNSPECIFIED (3) Acute blood loss anemia Code(s): D62 - ACUTE POSTHEMORRHAGIC ANEMIA
[2017-09-12 20:18] LABS: HEMATOCRIT 24.5 % (35.4-49); HEMOGLOBIN 8.3 GM/dL (11.7-16.9); MCH 30.6 pg (25.7-33.7); MCHC 33.7 g/dl (32.0-35.9); MEAN CELL VOLUME 90.9 fl (80-96); MEAN PLT VOLUME 8.8 fl (7.5-11.1); PLATELET COUNT 185 K/MM3 (134-434); RDW 15.2 % (11.9-15.9); WHITE BLOOD COUNT 6.4 K/mm3 (4.0-10.0)
[2017-09-12] MEDS: PANTOPRAZOLE 40 MG TABLET (FP) PO SCH (22:59)
[2017-09-13] MEDS: SUCRALFATE 1 GM/10 ML UNIT DOSE CUPS PO SCH ×4 (11:40→22:44)
[2017-09-13] MEDS: DEXTROSE 5%-0.45% SALINE 1,000 ML IV SCH ×2 (11:40→16:35)
[2017-09-13] MEDS: PANTOPRAZOLE 40 MG TABLET (FP) PO SCH ×2 (11:41→22:44)
--- NOTE | 2017-09-13 14:10 | PN ---
Progress Note, Physician History of Present Illness: Pain-free. No events, comfortable. Dark stools, Hgb holding up. - Current Medication List Current Medications: Active Medications Dextrose/Sodium Chloride (D5-1/2ns -) 1,000 mls @ 75 mls/hr IV ASDIR ELGIN Last Admin: 09/13/17 11:40 Dose: 75 mls/hr Octreotide Acetate 1,200 mcg/ (Dextrose) 500 mls @ 20.83 mls/hr IVPB ASDIR ELGIN ; 50 MCG/HR PRN Reason: Protocol Last Admin: 09/12/17 14:00 Dose: 20.83 mls/hr Pantoprazole Sodium (Protonix -) 40 mg PO BID [facility] Last Admin: 09/13/17 11:41 Dose: 40 mg Sucralfate (Carafate Oral Suspension -) 1 gm PO QID [facility] Last Admin: 09/13/17 11:40 Dose: 1 gm - Objective Vital Signs: Vital Signs Temperature 98 F 09/13/17 11:57 Pulse Rate 58 L 09/13/17 11:57 Respiratory Rate 18 09/13/17 11:57 Blood Pressure 98/58 09/13/17 11:57 O2 Sat by Pulse Oximetry (%) 95 09/12/17 21:00 Constitutional: Yes: No Distress, Calm Gastrointestinal: Yes: Normal Bowel Sounds, Soft. No: Tenderness, Tenderness, Rebound Neurological: Yes: Alert, Oriented Labs: CBC, BMP 09/12/17 19:20 09/12/17 06:35 INR, PTT INR 1.04 (0.82-1.09) 09/11/17 10:40 Abnormal Lab Results 09/12/17 19:20 RBC 2.70 L Hgb 8.3 L Hct 24.5 L Problem List - Problems (1) Severe anemia Code(s): D64.9 - ANEMIA, UNSPECIFIED (2) Duodenal ulcer Code(s): K26.9 - DUODENAL ULCER, UNSP ACUTE OR CHRONIC, W/O HEMOR OR PERF (3) GI bleed Code(s): K92.2 - GASTROINTESTINAL HEMORRHAGE, UNSPECIFIED Qualifiers: GI bleed type/associated pathology: melena Qualified Code(s): K92.1 - Melena (4) Acute blood loss anemia Code(s): D62 - ACUTE POSTHEMORRHAGIC ANEMIA Assessment/Plan Advance liquid PPI PO octreotide drips x 72 hrs total Carafate EGD Iron profile CMP Renal insufficiency, may be contributing to the anemia. Consult nephrology
--- NOTE | 2017-09-13 14:23 | PATH ---
Surgical Pathology Report Patient Name: [facility]. Rec. #: [id number] /Age/Gender: 1950 (Age: 67) / M Account: [id number] Location: [facility] MED/SURG Taken: 09/11/2017 Received: 09/12/2017 Reported: 09/13/2017 Physicians: Crista Hua M.D. Specimen(s) Received BX ANTRUM AND BODY Clinical History Preoperative diagnosis: GI bleeding Postoperative diagnosis: Duodenal ulcer Final Diagnosis STOMACH, ANTRUM AND BODY, BIOPSY: GASTRIC ANTRAL AND BODY MUCOSA WITH MILD CHRONIC GASTRITIS. IMMUNOHISTOCHEMICAL STAIN FOR H. PYLORI IS NEGATIVE. Electronically Signed Kailee Santiago M.D. Gross Description Received in formalin, labeled "biopsy antrum and body" are 2 flores, irregular portions of soft tissue measuring 0.4 and 0.7 cm. in greatest dimension. The specimens are submitted in toto in one cassette. 09/12/2017 saudi09/12/2017
[2017-09-13 15:41] LABS: ALBUMIN 2.2 g/dl (3.4-5.0); ANION GAP 6 (8-16); BLOOD UREA NITROGEN 22 mg/dL (7-18); CALCIUM 7.4 mg/dL (8.5-10.1); CHLORIDE 112 mmol/L (98-107); CO2 27 mmol/L (21-32); GLUCOSE,RANDOM 95 mg/dL (74-106); POTASSIUM 4.2 mmol/L (3.5-5.1); SGOT/AST 15 U/L (15-37); SGPT/ALT 23 U/L (12-78); SODIUM 145 mmol/L (136-145)
[2017-09-13 15:43] LABS: ALK PHOS 56 U/L (45-117); BILIRUBIN,TOTAL 0.4 mg/dL (0.2-1.0); TOT PROT 4.4 g/dl (6.4-8.2)
[2017-09-13 15:52] LABS: HEMATOCRIT 24.4 % (35.4-49); HEMOGLOBIN 8.2 GM/dL (11.7-16.9); MCH 30.5 pg (25.7-33.7); MCHC 33.7 g/dl (32.0-35.9); MEAN CELL VOLUME 90.5 fl (80-96); MEAN PLT VOLUME 8.4 fl (7.5-11.1); PLATELET COUNT 183 K/MM3 (134-434); RBC 2.69 M/mm3 (4.00-5.60); RDW 14.8 % (11.9-15.9); WHITE BLOOD COUNT 5.1 K/mm3 (4.0-10.0)
--- NOTE | 2017-09-13 16:48 | PN ---
Progress Note, Physician History of Present Illness: feeling better - Current Medication List Current Medications: Active Medications Dextrose/Sodium Chloride (D5-1/2ns -) 1,000 mls @ 75 mls/hr IV ASDIR ELGIN Last Admin: 09/13/17 16:35 Dose: Not Given Octreotide Acetate 1,200 mcg/ (Dextrose) 500 mls @ 20.83 mls/hr IVPB ASDIR ELGIN ; 50 MCG/HR PRN Reason: Protocol Last Admin: 09/12/17 14:00 Dose: 20.83 mls/hr Pantoprazole Sodium (Protonix -) 40 mg PO BID [facility] Last Admin: 09/13/17 11:41 Dose: 40 mg Sucralfate (Carafate Oral Suspension -) 1 gm PO QID [facility] Last Admin: 09/13/17 16:34 Dose: 1 gm - Objective Vital Signs: Vital Signs Temperature 97.9 F 09/13/17 15:25 Pulse Rate 59 L 09/13/17 15:25 Respiratory Rate 18 09/13/17 15:25 Blood Pressure 119/71 09/13/17 15:25 O2 Sat by Pulse Oximetry (%) 95 09/12/17 21:00 Constitutional: Yes: No Distress HENT: Yes: Atraumatic Neck: Yes: Supple Cardiovascular: Yes: Regular Rate and Rhythm Respiratory: Yes: CTA Bilaterally Gastrointestinal: Yes: Normal Bowel Sounds Extremities: Yes: WNL Edema: No Peripheral Pulses WNL: Yes Neurological: Yes: Alert, Oriented Labs: CBC, BMP 09/13/17 14:30 09/13/17 14:30 INR, PTT INR 1.04 (0.82-1.09) 09/11/17 10:40 Problem List - Problems (1) GI bleed Assessment/Plan: stable h/h better monitor stools Code(s): K92.2 - GASTROINTESTINAL HEMORRHAGE, UNSPECIFIED Qualifiers: GI bleed type/associated pathology: melena Qualified Code(s): K92.1 - Melena (2) Severe anemia Assessment/Plan: better after blood transfusion on clear liquid diet Code(s): D64.9 - ANEMIA, UNSPECIFIED (3) Acute blood loss anemia Code(s): D62 - ACUTE POSTHEMORRHAGIC ANEMIA
[2017-09-13] MEDS: OCTREOTIDE ACETATE 1,200 MCG in DEXTROSE 5%-WATER - 488 ML IVPB SCH (16:57)
[2017-09-14] MEDS: SUCRALFATE 1 GM/10 ML UNIT DOSE CUPS PO SCH ×4 (09:57→21:16)
[2017-09-14] MEDS: PANTOPRAZOLE 40 MG TABLET (FP) PO SCH ×2 (09:57→21:16)
[2017-09-14 14:21] LABS: HEMATOCRIT 25.2 % (35.4-49); HEMOGLOBIN 8.4 GM/dL (11.7-16.9); MCH 30.2 pg (25.7-33.7); MCHC 33.4 g/dl (32.0-35.9); MEAN CELL VOLUME 90.4 fl (80-96); MEAN PLT VOLUME 8.1 fl (7.5-11.1); PLATELET COUNT 190 K/MM3 (134-434); RBC 2.79 M/mm3 (4.00-5.60); RDW 15.2 % (11.9-15.9); WHITE BLOOD COUNT 6.8 K/mm3 (4.0-10.0)
[2017-09-14] MEDS: OCTREOTIDE ACETATE 1,200 MCG in DEXTROSE 5%-WATER - 488 ML IVPB SCH (15:37)
--- NOTE | 2017-09-14 16:07 | PN ---
Progress Note, Physician History of Present Illness: Pain-free. No events, comfortable. Hgb holding up. - Current Medication List Current Medications: Active Medications Pantoprazole Sodium (Protonix -) 40 mg PO BID [facility] Last Admin: 09/14/17 09:57 Dose: 40 mg Sucralfate (Carafate Oral Suspension -) 1 gm PO QID [facility] Last Admin: 09/14/17 13:38 Dose: 1 gm - Objective Vital Signs: Vital Signs Temperature 98.4 F 09/14/17 14:27 Pulse Rate 65 09/14/17 14:27 Respiratory Rate 18 09/14/17 14:27 Blood Pressure 129/74 09/14/17 14:27 O2 Sat by Pulse Oximetry (%) 95 09/13/17 21:00 Constitutional: Yes: No Distress, Calm Eyes: Yes: Conjunctiva Clear HENT: Yes: Atraumatic Neck: Yes: Supple Cardiovascular: Yes: Regular Rate and Rhythm Respiratory: Yes: Regular Gastrointestinal: Yes: Normal Bowel Sounds, Soft. No: Melena, Rectal Bleeding, Tenderness, Vomiting Neurological: Yes: Alert, Oriented Labs: CBC, BMP 09/14/17 13:40 09/13/17 14:30 INR, PTT INR 1.04 (0.82-1.09) 09/11/17 10:40 Abnormal Lab Results 09/11/17 09/14/17 10:40 13:40 RBC 2.79 L Hgb 8.4 L Hct 25.2 L Crossmatch See Detail Problem List - Problems (1) Severe anemia Code(s): D64.9 - ANEMIA, UNSPECIFIED (2) Duodenal ulcer Code(s): K26.9 - DUODENAL ULCER, UNSP ACUTE OR CHRONIC, W/O HEMOR OR PERF (3) GI bleed Code(s): K92.2 - GASTROINTESTINAL HEMORRHAGE, UNSPECIFIED Qualifiers: GI bleed type/associated pathology: melena Qualified Code(s): K92.1 - Melena (4) Acute blood loss anemia Code(s): D62 - ACUTE POSTHEMORRHAGIC ANEMIA Assessment/Plan Advance diet PPI PO d/c octreotide drips Carafate Iron profile CMP Renal insufficiency, may be contributing to the anemia. Consult nephrology
--- NOTE | 2017-09-14 16:17 | DS ---
Physical Examination Vital Signs: Vital Signs Temperature 98.4 F 09/14/17 14:27 Pulse Rate 65 09/14/17 14:27 Respiratory Rate 18 09/14/17 14:27 Blood Pressure 129/74 09/14/17 14:27 O2 Sat by Pulse Oximetry (%) 95 09/13/17 21:00 Constitutional: Yes: No Distress HENT: Yes: Atraumatic Neck: Yes: Supple Cardiovascular: Yes: Regular Rate and Rhythm Respiratory: Yes: CTA Bilaterally Gastrointestinal: Yes: Normal Bowel Sounds Extremities: Yes: WNL Neurological: Yes: Alert, Oriented Labs: CBC, BMP 09/14/17 13:40 09/13/17 14:30 Discharge Summary Reason For Visit: GASTROINTESTINAL HEMORRHAGE Current Active Problems Duodenal ulcer (Acute) GI bleed (Acute) Severe anemia (Acute) - Instructions Referrals: April Velasquez MD [Staff Physician] - Jose Starkey MD [Staff Physician] - - Home Medications Comprehensive Discharge Medication List: Ambulatory Orders Pantoprazole Sodium [Protonix] 40 mg PO BID #60 tablet. 09/05/17 Pantoprazole Sodium [Protonix -] 40 mg PO BID #60 tablet.ec 09/14/17
--- NOTE | 2017-09-14 16:42 | PN ---
Progress Note, Physician - Current Medication List Current Medications: Active Medications Pantoprazole Sodium (Protonix -) 40 mg PO BID [facility] Last Admin: 09/14/17 09:57 Dose: 40 mg Sucralfate (Carafate Oral Suspension -) 1 gm PO QID [facility] Last Admin: 09/14/17 13:38 Dose: 1 gm - Objective Vital Signs: Vital Signs Temperature 98.4 F 09/14/17 14:27 Pulse Rate 65 09/14/17 14:27 Respiratory Rate 18 09/14/17 14:27 Blood Pressure 129/74 09/14/17 14:27 O2 Sat by Pulse Oximetry (%) 95 09/13/17 21:00 Constitutional: Yes: No Distress HENT: Yes: Atraumatic Neck: Yes: Supple Cardiovascular: Yes: Regular Rate and Rhythm Respiratory: Yes: CTA Bilaterally Gastrointestinal: Yes: Normal Bowel Sounds Edema: No Neurological: Yes: Alert, Oriented Labs: CBC, BMP 09/14/17 13:40 09/13/17 14:30 INR, PTT INR 1.04 (0.82-1.09) 09/11/17 10:40 Problem List - Problems (1) GI bleed Code(s): K92.2 - GASTROINTESTINAL HEMORRHAGE, UNSPECIFIED Qualifiers: GI bleed type/associated pathology: melena Qualified Code(s): K92.1 - Melena (2) Severe anemia Code(s): D64.9 - ANEMIA, UNSPECIFIED (3) Acute blood loss anemia Code(s): D62 - ACUTE POSTHEMORRHAGIC ANEMIA Assessment/Plan on regular diet for dinner if stable dc in am
[2017-09-15 07:50] LABS: BASO % 0.3 % (0-2.0); EOS % 2.1 % (0-4.5); HEMATOCRIT 25.4 % (35.4-49); HEMOGLOBIN 8.6 GM/dL (11.7-16.9); LYMPH % 13.1 % (8-40); MCH 30.1 pg (25.7-33.7); MCHC 33.8 g/dl (32.0-35.9); MEAN CELL VOLUME 89.2 fl (80-96); MONO % 5.8 % (3.8-10.2); NEUT % 78.7 % (42.8-82.8); PLATELET COUNT 199 K/MM3 (134-434); RBC 2.85 M/mm3 (4.00-5.60); RDW 14.8 % (11.9-15.9); WHITE BLOOD COUNT 6.7 K/mm3 (4.0-10.0)
[2017-09-15] MEDS: PANTOPRAZOLE 40 MG TABLET (FP) PO SCH (10:46)
[2017-09-15] MEDS: SUCRALFATE 1 GM/10 ML UNIT DOSE CUPS PO SCH ×2 (10:46→15:08)
[2017-09-15 14:49] LABS: HEMATOCRIT 28.5 % (35.4-49); HEMOGLOBIN 9.4 GM/dL (11.7-16.9); MCH 29.8 pg (25.7-33.7); MCHC 33.1 g/dl (32.0-35.9); MEAN PLT VOLUME 7.5 fl (7.5-11.1); PLATELET COUNT 231 K/MM3 (134-434); RBC 3.16 M/mm3 (4.00-5.60); RDW 14.5 % (11.9-15.9); WHITE BLOOD COUNT 8.2 K/mm3 (4.0-10.0)
[2017-09-15 15:03] VITALS: BP 113/70; PULSE 63; TEMP 98.3
[2017-09-16 06:47] LABS: SERUM IRON SATURATION 6 % (15-55); TOTAL IRON BINDING CAPACITY 287 ug/dL (250-450); UIBC 270 ug/dL (111-343)
== END 2017-09-15 17:24 | disposition home or self-care (01) | DRG 378 ==
LOC: JER 09:56 → JICU 12:43 → J7W 09-12 13:17
PROVIDERS: ADMIT Internal Medicine; ATTEND Internal Medicine
PROC: 3E0G8GC Introduction of Other Therapeutic Substance into Upper GI, Via Natural or Artificial Opening Endoscopic (ICD-10-PCS; 2017-09-11)
PROC: 30233N1 Transfusion of Nonautologous Red Blood Cells into Peripheral Vein, Percutaneous Approach (ICD-10-PCS; 2017-09-11)
PROC: 0W3P8ZZ Control Bleeding in Gastrointestinal Tract, Via Natural or Artificial Opening Endoscopic (ICD-10-PCS; principal; 2017-09-11 12:30)
DX: K26.0 Acute duodenal ulcer with hemorrhage (principal); D62 Acute posthemorrhagic anemia; N17.9 Acute kidney failure, unspecified; I95.9 Hypotension, unspecified; N28.9 Disorder of kidney and ureter, unspecified; I10 Essential (primary) hypertension; K21.9 Gastro-esophageal reflux disease without esophagitis
CPT/HCPCS: 36415; 36430; 71045-TC; 80053; 81003; 82550; 82553; 82962; 83540; 83550; 83605; 83735; 83880; 84100; 84484; 85025; 85027; 85610; 85730; 86850; 86900; 86901; 86922; 87040; 87086; 93005; 93010; 99284-25; P9038; P9058

== ENCOUNTER 2017-10-16 12:56 | Observation (INO) | payer OTHER ==
--- NOTE | 2017-10-16 13:51 | PDOC ---
History of Present Illness - General Chief Complaint: Revisit, Lab Variance Stated Complaint: LAB VARIANCE Time Seen by Provider: 10/16/17 13:22 - History of Present Illness Initial Comments: 10/16/17 13:55 The patient is a 67 year old male with a history of GERD, UGI Bleed, HTN who presents for evaluation from his PCP for concerns of a low HGB. The patient reports that he had 2 recent admissions 1 month ago for Severe anemia due to a bleeding peptic ulcer requiring transfusions. He states that his PCP called him yesterday after a follow up appointment informing him to come to the ER for evaluation of a low HGB. He currently is only complaining of his normal epigastric abdominal pain. He otherwise denies fevers, chills, SOB, chest pain , lightheadedness, weakness, nausea, vomiting, melena, or changes with urination or bowel movements. Past History - Past Medical History Allergies/Adverse Reactions: Allergies Allergy/AdvReac Type Severity Reaction Status Date / Time No Known Allergies Allergy Verified 10/16/17 13:25 Home Medications: Ambulatory Orders Pantoprazole Sodium [Protonix -] 40 mg PO BID #60 tablet.ec 09/14/17 Sucralfate Oral Suspension [Carafate Oral Suspension -] 1 gm PO QID #30 ml 09/14 Divalproex [Depakote -] 500 mg PO HS 10/16/17 Escitalopram Oxalate [Lexapro -] 20 mg PO DAILY 10/16/17 LORazepam [Ativan] 1 mg PO HS 10/16/17 COPD: No HTN: Yes Psychiatric Problems: Yes (DEPRESSION, ANXIETY) - Surgical History Appendectomy: Yes Cholecystectomy: Yes - Immunization History Immunization Up to Date: No - Suicide/Smoking/Psychosocial Hx Smoking History: Never smoked Have you smoked in the past 12 months: No Information on smoking cessation initiated: No Hx Alcohol Use: No Drug/Substance Use Hx: No Substance Use Type: None Review of Systems - Review of Systems Comments:: 10/16/17 13:59 Constitutional: No fevers, chills, fatigue, malaise HEENT: No Rhinorrhea, nasal congestion, visual changes Cardiovascular: No chest pain, syncope, palpitations, lightheadedness Respiratory: No Cough, SOB, Hemoptysis, Gastrointestinal: Epigastric abdominal pain. No Nausea, Vomiting, Constipation, Diarrhea, Melena Genitourinary: No Dysuria, Frequency, Urgency, Hesitancy, Hematuria, Flank pain Musculoskeletal: No Myalgia, arthralgia Skin: No rashes, itching, bruising, pallor Neurologic: No Headache, Dizziness, Numbness, Weakness, or Tingling Psychiatric: No Hallucinations. No SI or HI *Physical Exam - Vital Signs Last Vital Signs Temp Pulse Resp BP Pulse Ox 97.3 F L 88 18 128/79 100 10/16/17 13:01 10/16/17 13:01 10/16/17 13:01 10/16/17 13:01 10/16/17 13:01 - Physical Exam Comments: 10/16/17 14:00 General Appearance: Nourished. No Apparent Distress HEENT: No Pharyngeal Erythema, Tonsillar Exudate, Tonsillar Erythema Neck: No Cervical Lymphadenopathy Respiratory/Chest: Lungs Clear, Normal Breath Sounds. No Crackles, Rales, Rhonchi, Wheezing Cardiovascular: Regular Rhythm, Regular Rate. No Murmur, Gallops, Rubs Gastrointestinal/Abdominal: Normal Bowel Sounds, Soft. Mild epigastric tenderness to palpation. No Guarding, Rebound Musculoskeletal: No CVA Tenderness Extremity: Normal Capillary Refill Integumentary: Normal Color, Dry, Warm Neurologic: Fully Oriented, Alert, Normal Mood/Affect, Normal Response, ED Treatment Course - LABORATORY CBC & Chemistry Diagram: 10/16/17 14:00 10/16/17 14:00 Medical Decision Making - Medical Decision Making 10/16/17 14:02 The patient is a 67 year old male with a history of GERD, UGI Bleed, HTN who presents for evaluation from his PCP for concerns of a low HGB. Differential includes but is not limited to: UGI Bleed, Gastritis, pancreatitis, GERD, infectious, metabolic derangement. Given the patient's recent history of UGI bleeds, we will send a cbc, cmp, type and screen, coags, lipase, troponin, ekg, and stool guiac to further evaluate. We will continue to monitor and reassess. 10/16/17 15:31 CBC demonstrates a hgb to 7.9. CMP is unchanged and stool guiac is negative. We will transfuse the patient with 1 unit of PRBC. The patient will require admission for further management. We discussed the case with Dr. Eaton who accepted the patient for admission. *DC/Admit/Observation/Transfer Diagnosis at time of Disposition: GI bleed Qualifiers: GI bleed type/associated pathology: unspecified gastrointestinal hemorrhage type Qualified Code(s): K92.2 - Gastrointestinal hemorrhage, unspecified - Discharge Dispostion Condition at time of disposition: Stable Admit: Yes - Referrals - Patient Instructions - Post Discharge Activity
[2017-10-16 14:15] LABS: BASO % 0.7 % (0-2.0); EOS % 2.7 % (0-4.5); HEMATOCRIT 24.8 % (35.4-49); HEMOGLOBIN 7.9 GM/dL (11.7-16.9); LYMPH % 21.7 % (8-40); MCH 25.8 pg (25.7-33.7); MEAN CELL VOLUME 80.6 fl (80-96); MEAN PLT VOLUME 8.3 fl (7.5-11.1); MONO % 6.2 % (3.8-10.2); NEUT % 68.7 % (42.8-82.8); PLATELET COUNT 167 K/MM3 (134-434); RBC 3.08 M/mm3 (4.00-5.60); RDW 18.5 % (11.9-15.9); WHITE BLOOD COUNT 3.4 K/mm3 (4.0-10.0)
--- NOTE | 2017-10-16 14:32 | PDOC ---
Attending Attestation - Resident Resident Name: LaneyJerrodRanjit - ED Attending Attestation I have performed the following: I have examined & evaluated the patient, The case was reviewed & discussed with the resident, I agree w/resident's findings & plan, Exceptions are as noted - HPI HPI: 10/16/17 14:20 67-year-old male with history of upper GI bleed and anemia requiring transfusion sent to ER by his primary physician after lab work from last week showed recurring anemia. Patient notes possible increased generalized fatigue, did not note any blood in the stool or abdominal pain. No chest pain or syncope. - Physicial Exam PE: 10/16/17 14:32 VSS abd benign - Medical Decision Making 10/16/17 14:32 Patient seen and evaluated with the resident. I agree with the overall evaluation, assessment, and management with the following summary of visit: 67-year-old male with acute on chronic anemia likely secondary to chronic upper GI bleed, hemodynamically stable. Labs, type and screen IV fluids, PPI Admission Heart Score/ECG Review #1 ECG reviewed & interpreted by me at: 14:25 General ECG Interpretation: Sinus Rhythm, Normal Rate (75), Normal Intervals ( qtc 433, LVH), No acute ischemic changes
[2017-10-16 14:33] LABS: ALBUMIN 3.6 g/dl (3.4-5.0); ANION GAP 11 (8-16); BILIRUBIN,TOTAL 0.3 mg/dL (0.2-1.0); BLOOD UREA NITROGEN 17 mg/dL (7-18); CALCIUM 8.5 mg/dL (8.5-10.1); CHLORIDE 108 mmol/L (98-107); CO2 23 mmol/L (21-32); CREATININE 1.5 mg/dL (0.7-1.3); GLUCOSE,RANDOM 115 mg/dL (74-106); POTASSIUM 4.3 mmol/L (3.5-5.1); SGOT/AST 18 U/L (15-37); SGPT/ALT 18 U/L (12-78); SODIUM 142 mmol/L (136-145); TOT PROT 6.9 g/dl (6.4-8.2)
[2017-10-16 14:36] LABS: ALK PHOS 65 U/L (45-117)
[2017-10-16 14:37] LABS: INR 0.99 (0.82-1.09); PROTHROMBIN TIME (PATIENT) 11.2 SEC (9.98-11.88)
[2017-10-16 14:40] LABS: ACTIVATED PTT 26.5 SECONDS (26.9-34.4)
[2017-10-16 14:43] LABS: LIPASE 274 U/L (73-393)
[2017-10-16 17:12] VITALS: BMI 33.3
[2017-10-16] MEDS ORDERED: PANTOPRAZOLE SODIUM 80 MG in SODIUM CHLORIDE 100 ML IVPB SCH (17:45)
[2017-10-16] MEDS ORDERED: PANTOPRAZOLE SODIUM 160 MG in DEXTROSE 5%-WATER - 290 ML IVPB SCH (18:00)
[2017-10-16] MEDS ORDERED: SUCRALFATE 1 GM/10 ML UNIT DOSE CUPS PO SCH (18:00)
--- NOTE | 2017-10-16 18:32 | CON.GI ---
Consult Consult Specialty:: GI Reason for Consultation:: anemia, hx of PUD - History of Present Illness History of Present Illness: A 67 yom known to GI service form 2 prior admissions for duodelna ulcer bleeding admitted this am for anemia. PCP noted hgb of 8.6 g/dl and referred the pt to ED. The pt was discharged 09/13/17 with Hgb of 8.4 g/dl. Heme negative stools in ED. He reports no recent melena, hematemesis, hematochezia, epigastric pain, nausea, vomiting, fever. No hemodynamic changes observed. Unclear if he was taking PPI, iron as prescribed. - History Source History Provided By: Patient, Medical Record - Past Medical History Cardio/Vascular: Yes: HTN Gastrointestinal: Yes: GI Bleed Renal/: Yes: Renal Inusuff Psych: Yes: Depression - Past Surgical History Past Surgical History: Yes: Appendectomy - Alcohol/Substance Use Hx Alcohol Use: No - Smoking History Smoking history: Never smoked Have you smoked in the past 12 months: No Home Medications - Allergies Allergies/Adverse Reactions: Allergies Allergy/AdvReac Type Severity Reaction Status Date / Time No Known Allergies Allergy Verified 10/16/17 13:25 - Home Medications Home Medications: Ambulatory Orders Pantoprazole Sodium [Protonix -] 40 mg PO BID #60 tablet.ec 09/14/17 Sucralfate Oral Suspension [Carafate Oral Suspension -] 1 gm PO QID #30 ml 09/14 Divalproex [Depakote -] 500 mg PO BID 10/16/17 Escitalopram Oxalate [Lexapro -] 20 mg PO DAILY 10/16/17 LORazepam [Ativan] 1 mg PO HS 10/16/17 Levothyroxine [Synthroid -] 25 mcg PO DAILY 10/16/17 Losartan Potassium 50 mg PO DAILY 10/16/17 Mirtazapine [Remeron [DO NOT STOCK]] 45 mg PO HS 10/16/17 Family Disease History - Family Disease History Family History: Unremarkable Review of Systems Findings/Remarks: as per HPI/H&P Physical Exam-GI Vital Signs: Vital Signs Temperature 98 F 10/16/17 18:02 Pulse Rate 68 10/16/17 18:02 Respiratory Rate 18 10/16/17 18:02 Blood Pressure 121/73 10/16/17 18:02 O2 Sat by Pulse Oximetry (%) 99 10/16/17 18:00 Constitutional: Yes: Well Nourished, No Distress, Calm, Pallor Eyes: Yes: Conjunctiva Clear HENT: Yes: Atraumatic Neck: Yes: Supple Cardiovascular: Yes: Regular Rate and Rhythm Respiratory: Yes: Regular Gastrointestinal Inspection: No: Ascites, Distention ...Auscultate: Yes: Normoactive Bowel Sounds ...Palpate: Yes: Soft. No: Firm/Rigid, Guarding, Mass, Tenderness ...Rectal Exam: Yes: Guaiac Negative (see lab results) Neurological: Yes: Alert Labs: CBC, BMP 10/16/17 14:00 10/16/17 14:00 INR, PTT INR 0.99 (0.82-1.09) 10/16/17 14:00 Laboratory Tests 10/16/17 10/16/17 10/16/17 13:47 14:00 14:00 WBC 3.4 L D RBC 3.08 L Hgb 7.9 L D Hct 24.8 L MCV 80.6 D MCH 25.8 D MCHC 32.0 RDW 18.5 H D Plt Count 167 D MPV 8.3 D Neutrophils % 68.7 Lymphocytes % 21.7 D Monocytes % 6.2 Eosinophils % 2.7 Basophils % 0.7 PT with INR INR PTT (Actin FS) Sodium Potassium Chloride Carbon Dioxide Anion Gap BUN Creatinine Creat Clearance w eGFR Random Glucose Calcium Total Bilirubin AST ALT Alkaline Phosphatase Creatine Kinase Creatine Kinase Index CK-MB (CK-2) Troponin I Total Protein Albumin Lipase Stool Occult Blood Negative Blood Type O POSITIVE Antibody Screen Negative Crossmatch See Detail 10/16/17 10/16/17 14:00 14:00 WBC RBC Hgb Hct MCV MCH MCHC RDW Plt Count MPV Neutrophils % Lymphocytes % Monocytes % Eosinophils % Basophils % PT with INR 11.20 INR 0.99 PTT (Actin FS) 26.5 L Sodium 142 Potassium 4.3 Chloride 108 H Carbon Dioxide 23 Anion Gap 11 BUN 17 D Creatinine 1.5 H D Creat Clearance w eGFR 46.68 Random Glucose 115 H D Calcium 8.5 Total Bilirubin 0.3 D AST 18 ALT 18 D Alkaline Phosphatase 65 Creatine Kinase 181 Creatine Kinase Index 1.1 CK-MB (CK-2) 2.087 Troponin I < 0.02 Total Protein 6.9 D Albumin 3.6 D Lipase 274 Stool Occult Blood Blood Type Antibody Screen Crossmatch Problem List - Problems (1) Anemia Code(s): D64.9 - ANEMIA, UNSPECIFIED (2) History of duodenal ulcer Code(s): Z87.19 - PERSONAL HISTORY OF OTHER DISEASES OF THE DIGESTIVE SYSTEM (3) Duodenal ulcer Code(s): K26.9 - DUODENAL ULCER, UNSP ACUTE OR CHRONIC, W/O HEMOR OR PERF Assessment/Plan A 67 yom with 2 recent admissions for duodenal ulcer bleeding, admitted again for observation as he was noted to have unchanged hemoglobin level frmo 1 month ago on OP follow up. No obvious signs of ongoing bleeding. Hgb appears to be stable compared to 1 m ago. No hemodynamioc changed observed. The pt offers no specific complaints at this time. Plan EGD in AM to assess the duodenal ulcer PPI PO No Carafate today NPO after midnight discussed with the pt's nurse
[2017-10-16] MEDS: SODIUM CHLORIDE 1,000 ML IV SCH (20:08)
[2017-10-16] MEDS ORDERED: PT OWN MED DRAWER 7, Y5N ONE (22:01)
[2017-10-16] MEDS: DIVALPROEX SODIUM 500 MG TABLET E.C. PO SCH (22:03)
[2017-10-16] MEDS: LORazepam 1 MG TABLET PO SCH (22:03)
[2017-10-17] MEDS: SODIUM CHLORIDE 1,000 ML IV SCH ×2 (00:27→14:08)
[2017-10-17] MEDS: LEVOTHYROXINE NA 25 MCG TABLET (FP) PO SCH (06:31)
[2017-10-17 07:37] LABS: BASO % 0.6 % (0-2.0); EOS % 3.4 % (0-4.5); HEMATOCRIT 26.3 % (35.4-49); HEMOGLOBIN 8.6 GM/dL (11.7-16.9); LYMPH % 28.9 % (8-40); MCH 26.2 pg (25.7-33.7); MCHC 32.5 g/dl (32.0-35.9); MEAN CELL VOLUME 80.6 fl (80-96); MEAN PLT VOLUME 8.4 fl (7.5-11.1); MONO % 8.7 % (3.8-10.2); NEUT % 58.4 % (42.8-82.8); PLATELET COUNT 142 K/MM3 (134-434); RBC 3.26 M/mm3 (4.00-5.60); RDW 17.7 % (11.9-15.9); WHITE BLOOD COUNT 2.9 K/mm3 (4.0-10.0)
[2017-10-17 07:50] LABS: INR 1.02 (0.82-1.09); PROTHROMBIN TIME (PATIENT) 11.5 SEC (9.98-11.88)
[2017-10-17 08:09] LABS: ALBUMIN 3.3 g/dl (3.4-5.0); ALK PHOS 61 U/L (45-117); ANION GAP 6 (8-16); BILIRUBIN,TOTAL 0.4 mg/dL (0.2-1.0); BLOOD UREA NITROGEN 15 mg/dL (7-18); CALCIUM 8.1 mg/dL (8.5-10.1); CHLORIDE 111 mmol/L (98-107); CO2 27 mmol/L (21-32); CREATININE 1.3 mg/dL (0.7-1.3); GLUCOSE,RANDOM 76 mg/dL (74-106); POTASSIUM 4.3 mmol/L (3.5-5.1); SGOT/AST 16 U/L (15-37); SGPT/ALT 16 U/L (12-78); SODIUM 144 mmol/L (136-145)
--- NOTE | 2017-10-17 10:34 | EKG ---
Test Reason : Blood Pressure : / mmHG Vent. Rate : 075 BPM Atrial Rate : 075 BPM P-R Int : 148 ms QRS Dur : 102 ms QT Int : 388 ms P-R-T Axes : 023 -34 033 degrees QTc Int : 433 ms NORMAL SINUS RHYTHM LEFT AXIS DEVIATION MODERATE VOLTAGE CRITERIA FOR LVH, MAY BE NORMAL VARIANT ABNORMAL ECG WHEN COMPARED WITH ECG OF 11-SEP-2017 10:10, NO SIGNIFICANT CHANGE WAS FOUND Confirmed by DONNELL GARCIA, STARR ([id number]) on 10/17/2017 10:34:09 AM Referred By: Confirmed By:STARR JACOBO MD
[2017-10-17] MEDS ORDERED: ETOMIDATE 20 MG/10 ML AMPUL IVPUSH ONE (11:00)
[2017-10-17] MEDS ORDERED: PROPOFOL 20 ML ONE ×2 (11:01)
--- NOTE | 2017-10-17 11:32 | PN ---
Progress Note, Physician History of Present Illness: No events overnight EGD this am revealed a nearly completely healed, previously identified and treated duodenal ulcer. Normal exam otherwise. No biopsies taken (see path results from prior 2 admissions). Diverticulosis was noted on colonoscopy in early August of this year. - Current Medication List Current Medications: Active Medications Divalproex Sodium (Depakote -) 500 mg PO BID [facility] Last Admin: 10/16/17 22:03 Dose: 500 mg Escitalopram Oxalate (Lexapro -) 20 mg PO DAILY [facility] Sodium Chloride (Normal Saline -) 1,000 mls @ 75 mls/hr IV ASDIR [facility] Last Admin: 10/17/17 00:27 Dose: 75 mls/hr Levothyroxine Sodium (Synthroid -) 25 mcg PO DAILY@0700 [facility] Last Admin: 10/17/17 06:31 Dose: Not Given Lorazepam (Ativan -) 1 mg PO HS [facility] Last Admin: 10/16/17 22:03 Dose: 1 mg Losartan Potassium (Cozaar -) 50 mg PO DAILY [facility] - Objective Vital Signs: Vital Signs Temperature 98 F 10/17/17 10:00 Pulse Rate 69 10/17/17 10:00 Respiratory Rate 20 10/17/17 10:00 Blood Pressure 116/76 10/17/17 10:00 O2 Sat by Pulse Oximetry (%) 99 10/16/17 18:00 Constitutional: Yes: Well Nourished, No Distress, Calm Eyes: Yes: Conjunctiva Clear HENT: Yes: Atraumatic Neck: Yes: Supple Cardiovascular: Yes: Regular Rate and Rhythm Respiratory: Yes: Regular Gastrointestinal: Yes: Soft Labs: CBC, BMP 10/17/17 06:50 10/17/17 06:50 INR, PTT INR 1.02 (0.82-1.09) 10/17/17 06:50 Abnormal Lab Results 10/16/17 10/16/17 10/16/17 14:00 14:00 14:00 WBC 3.4 L D RBC 3.08 L Hgb 7.9 L D Hct 24.8 L RDW 18.5 H D PTT (Actin FS) 26.5 L Chloride Anion Gap Creatinine Random Glucose Calcium Total Protein Albumin Crossmatch See Detail 10/16/17 10/17/17 10/17/17 14:00 06:50 06:50 WBC 2.9 L RBC 3.26 L Hgb 8.6 L Hct 26.3 L RDW 17.7 H PTT (Actin FS) Chloride 108 H 111 H Anion Gap 6 L Creatinine 1.5 H D Random Glucose 115 H D Calcium 8.1 L Total Protein 6.0 L Albumin 3.3 L Crossmatch Problem List - Problems (1) Anemia Code(s): D64.9 - ANEMIA, UNSPECIFIED (2) History of duodenal ulcer Code(s): Z87.19 - PERSONAL HISTORY OF OTHER DISEASES OF THE DIGESTIVE SYSTEM (3) Duodenal ulcer Code(s): K26.9 - DUODENAL ULCER, UNSP ACUTE OR CHRONIC, W/O HEMOR OR PERF Assessment/Plan Nearly healed, previously identified duodenal ulcer, otherwise normal EGD PPI PO daily Iron supplementation, if needed Hematology consult Regular diet Avoid NSAIDs
--- NOTE | 2017-10-17 11:55 | HP ---
Admitting History and Physical - Primary Care Physician PCP: Jasmina Eaton - Admission Chief Complaint: Anemia History Source: Patient Limitations to Obtaining History: No Limitations - Past Medical History Cardiovascular: Yes: HTN Gastrointestinal: Yes: GI Bleed Renal/: Yes: Renal Inusuff Heme/Onc: Yes: Anemia Psych: Yes: Depression - Past Surgical History Past Surgical History: Yes: Appendectomy - Smoking History Smoking history: Never smoked Have you smoked in the past 12 months: No - Alcohol/Substance Use Hx Alcohol Use: No Home Medications - Allergies Allergies/Adverse Reactions: Allergies Allergy/AdvReac Type Severity Reaction Status Date / Time No Known Allergies Allergy Verified 10/16/17 13:25 - Home Medications Home Medications: Ambulatory Orders Pantoprazole Sodium [Protonix -] 40 mg PO BID #60 tablet.ec 09/14/17 Sucralfate Oral Suspension [Carafate Oral Suspension -] 1 gm PO QID #30 ml 09/14 Divalproex [Depakote -] 500 mg PO BID 10/16/17 Escitalopram Oxalate [Lexapro -] 20 mg PO DAILY 10/16/17 LORazepam [Ativan] 1 mg PO HS 10/16/17 Levothyroxine [Synthroid -] 25 mcg PO DAILY 10/16/17 Losartan Potassium 50 mg PO DAILY 10/16/17 Mirtazapine [Remeron [DO NOT STOCK]] 45 mg PO HS 10/16/17 Review of Systems - Review of Systems Constitutional: reports: Weakness Eyes: reports: No Symptoms HENT: reports: No Symptoms Neck: reports: No Symptoms Cardiovascular: reports: No Symptoms Respiratory: reports: No Symptoms Gastrointestinal: reports: No Symptoms Genitourinary: reports: No Symptoms Breasts: reports: No Symptoms Reported Musculoskeletal: reports: No Symptoms Integumentary: reports: No Symptoms Neurological: reports: No Symptoms Endocrine: reports: No Symptoms Hematology/Lymphatic: reports: No Symptoms Psychiatric: reports: No Symptoms Physical Examination Vital Signs: Vital Signs Temperature 98.1 F 10/17/17 11:27 Pulse Rate 66 10/17/17 11:42 Respiratory Rate 18 10/17/17 11:42 Blood Pressure 111/48 10/17/17 11:42 O2 Sat by Pulse Oximetry (%) 100 10/17/17 11:42 Findings/Remarks: The patient is a 67 year old male with a history of GERD, UGI Bleed, HTN who presents for evaluation from his PCP for concerns of a low HGB. The patient reports that he had 2 recent admissions 1 month ago for Severe anemia due to a bleeding peptic ulcer requiring transfusions. He states that his PCP called him yesterday after a follow up appointment informing him to come to the ER for evaluation of a low HGB. He currently is only complaining of his normal epigastric abdominal pain. He otherwise denies fevers, chills, SOB, chest pain , lightheadedness, weakness, nausea, vomiting, melena, or changes with urination or bowel movements. Constitutional: Yes: Well Nourished, No Distress, Calm Cardiovascular: Yes: Regular Rate and Rhythm Respiratory: Yes: Regular Gastrointestinal: Yes: Normal Bowel Sounds, Soft Musculoskeletal: Yes: WNL Extremities: Yes: WNL Edema: No Peripheral Pulses WNL: Yes Neurological: Yes: Alert, Oriented Psychiatric: Yes: Alert, Oriented Labs: CBC, BMP 10/17/17 06:50 10/17/17 06:50 Problem List - Problems (1) Anemia Assessment/Plan: -Guaiac x 1 negative -Guaiac all stools -monitor H/H -received PRBC x 1 -seen by GI- EGD negative fro acute bleed -Hematology consult -Check Iron profile, B 12, TSH, Folate, FT4 Code(s): D64.9 - ANEMIA, UNSPECIFIED (2) History of duodenal ulcer Assessment/Plan: -EGD negative -avoid NSAID's -PPI -Iron IV -GI on board Code(s): Z87.19 - PERSONAL HISTORY OF OTHER DISEASES OF THE DIGESTIVE SYSTEM Assessment/Plan see problem list
[2017-10-17] MEDS ORDERED: IRON SUCROSE INJECTION 300 MG in SODIUM CHLORIDE 235 ML IVPB ONE (11:56)
[2017-10-17] MEDS ORDERED: PT OWN MED DRAWER 7, Y5N ONE ×2 (13:35→19:36)
[2017-10-17] MEDS: PANTOPRAZOLE 40 MG TABLET (FP) PO SCH (14:06)
[2017-10-17] MEDS: ESCITALOPRAM OXALATE 20 MG TABLET (FP) PO SCH (14:06)
[2017-10-17] MEDS: LOSARTAN POTASSIUM 50 MG TABLET (FP) PO SCH (14:06)
[2017-10-17] MEDS: DIVALPROEX SODIUM 500 MG TABLET E.C. PO SCH ×2 (14:07→21:38)
--- NOTE | 2017-10-17 18:55 | CONSULT ---
Consult Consult Specialty:: hematology - History of Present Illness History of Present Illness: The patient is a 67 year old male with a history of GERD, UGI Bleed, HTN who presents for evaluation from his PCP for concerns of a low HGB. The patient reports that he had 2 recent admissions 1 month ago for Severe anemia due to a bleeding peptic ulcer requiring transfusions. He states that his PCP called him yesterday after a follow up appointment informing him to come to the ER for evaluation of a low HGB. He currently is only complaining of his normal epigastric abdominal pain. He otherwise denies fevers, chills, SOB, chest pain , lightheadedness, weakness, nausea, vomiting, melena, or changes with urination or bowel movements. Hematology consulted for anemia. Pt seen and examined chart reviewed - History Source History Provided By: Patient, Medical Record Limitations to Obtaining History: Poor Historian - Past Medical History Cardio/Vascular: Yes: HTN Gastrointestinal: Yes: GI Bleed Renal/: Yes: Renal Inusuff Psych: Yes: Depression - Past Surgical History Past Surgical History: Yes: Appendectomy - Alcohol/Substance Use Hx Alcohol Use: No - Smoking History Smoking history: Never smoked Have you smoked in the past 12 months: No Home Medications - Allergies Allergies/Adverse Reactions: Allergies Allergy/AdvReac Type Severity Reaction Status Date / Time No Known Allergies Allergy Verified 10/16/17 13:25 - Home Medications Home Medications: Ambulatory Orders Pantoprazole Sodium [Protonix -] 40 mg PO BID #60 tablet.ec 09/14/17 Sucralfate Oral Suspension [Carafate Oral Suspension -] 1 gm PO QID #30 ml 09/14 Divalproex [Depakote -] 500 mg PO BID 10/16/17 Escitalopram Oxalate [Lexapro -] 20 mg PO DAILY 10/16/17 LORazepam [Ativan] 1 mg PO HS 10/16/17 Levothyroxine [Synthroid -] 25 mcg PO DAILY 10/16/17 Losartan Potassium 50 mg PO DAILY 10/16/17 Mirtazapine [Remeron [DO NOT STOCK]] 45 mg PO HS 10/16/17 Physical Exam Vital Signs: Vital Signs Temperature 97.9 F 10/17/17 18:00 Pulse Rate 63 10/17/17 18:00 Respiratory Rate 20 10/17/17 18:00 Blood Pressure 135/77 10/17/17 18:00 O2 Sat by Pulse Oximetry (%) 100 10/17/17 17:08 Constitutional: Yes: Well Nourished, No Distress Eyes: Yes: Conjunctiva Clear HENT: Yes: Atraumatic, Normocephalic Cardiovascular: Yes: Regular Rate and Rhythm Respiratory: Yes: Regular Gastrointestinal: Yes: Normal Bowel Sounds, Abdomen, Obese Extremities: Yes: WNL Labs: CBC, BMP 10/17/17 06:50 10/17/17 06:50 Imaging - Results X-ray: Report Reviewed Problem List - Problems (1) Anemia Code(s): D64.9 - ANEMIA, UNSPECIFIED (2) History of duodenal ulcer Code(s): Z87.19 - PERSONAL HISTORY OF OTHER DISEASES OF THE DIGESTIVE SYSTEM (3) Acute blood loss anemia Code(s): D62 - ACUTE POSTHEMORRHAGIC ANEMIA Assessment/Plan Patient with severe Iron defeciency anemia recent h/o GIB ( duodenal ulcer ). to ensure if colonoscopy done as an OP Will take a period of time for Iron stores to be repleted needs PO Iron supplementation He would benefit from parenteral Iron, Can give one more tomorrow , noted was given today for labs
[2017-10-17] MEDS: LORazepam 1 MG TABLET PO SCH (21:38)
[2017-10-18] MEDS: SODIUM CHLORIDE 1,000 ML IV SCH (06:02)
[2017-10-18] MEDS: LEVOTHYROXINE NA 25 MCG TABLET (FP) PO SCH (06:33)
[2017-10-18 08:07] LABS: BASO % 0.8 % (0-2.0); EOS % 2.6 % (0-4.5); HEMATOCRIT 25.3 % (35.4-49); HEMOGLOBIN 8.6 GM/dL (11.7-16.9); LYMPH % 19.6 % (8-40); MCH 27.5 pg (25.7-33.7); MCHC 33.7 g/dl (32.0-35.9); MEAN CELL VOLUME 81.4 fl (80-96); MEAN PLT VOLUME 8.5 fl (7.5-11.1); MONO % 6.4 % (3.8-10.2); NEUT % 70.6 % (42.8-82.8); PLATELET COUNT 135 K/MM3 (134-434); RBC 3.11 M/mm3 (4.00-5.60); WHITE BLOOD COUNT 3.2 K/mm3 (4.0-10.0)
[2017-10-18 08:07] LABS: SERUM IRON SATURATION 7 % (15-55); TOTAL IRON BINDING CAPACITY 365 ug/dL (250-450); UIBC 338 ug/dL (111-343)
[2017-10-18 08:30] LABS: ALBUMIN 3.1 g/dl (3.4-5.0); ANION GAP 8 (8-16); BILIRUBIN,TOTAL 0.3 mg/dL (0.2-1.0); BLOOD UREA NITROGEN 14 mg/dL (7-18); CALCIUM 7.8 mg/dL (8.5-10.1); CHLORIDE 112 mmol/L (98-107); CO2 25 mmol/L (21-32); CREATININE 1.2 mg/dL (0.7-1.3); GLUCOSE,RANDOM 74 mg/dL (74-106); POTASSIUM 4.1 mmol/L (3.5-5.1); SGOT/AST 16 U/L (15-37); SGPT/ALT 18 U/L (12-78); SODIUM 145 mmol/L (136-145); TOT PROT 5.8 g/dl (6.4-8.2)
[2017-10-18 08:39] LABS: ALK PHOS 62 U/L (45-117)
[2017-10-18 09:21] VITALS: TEMP 97.6
[2017-10-18] MEDS ORDERED: PT OWN MED DRAWER 7, Y5N ONE (09:25)
[2017-10-18] MEDS: ESCITALOPRAM OXALATE 20 MG TABLET (FP) PO SCH (09:25)
[2017-10-18] MEDS: LOSARTAN POTASSIUM 50 MG TABLET (FP) PO SCH (09:25)
[2017-10-18] MEDS: DIVALPROEX SODIUM 500 MG TABLET E.C. PO SCH ×2 (09:26→09:35)
[2017-10-18] MEDS: PANTOPRAZOLE 40 MG TABLET (FP) PO SCH (09:26)
[2017-10-18] MEDS ORDERED: IRON SUCROSE INJECTION 300 MG in SODIUM CHLORIDE 235 ML IVPB ONE (10:00)
--- NOTE | 2017-10-18 11:15 | PN ---
Progress Note (short form) - Note Progress Note: Pt seen and examined. eager to go home. Denies any complains. O/E: General: Lying in bed in NAD HEENT: NCAT Cor: RRR Lungs: CTA b/l abdomen: soft NT obese LE: no CCE Last Vital Signs Temp Pulse Resp BP Pulse Ox 97.6 F 72 20 132/79 100 10/18/17 09:20 10/18/17 09:20 10/18/17 09:20 10/18/17 09:20 10/17/17 17:08 CBC, BMP 10/18/17 07:30 10/18/17 07:30 Current Medications Generic Name Dose Route Start Last Admin Trade Name Freq PRN Reason Stop Dose Admin Divalproex Sodium 500 mg 10/16/17 22:00 10/18/17 09:35 Depakote - PO Not Given BID ELGIN Escitalopram Oxalate 20 mg 10/17/17 10:00 10/18/17 09:25 Lexapro - PO 20 mg DAILY ELGIN Administration Sodium Chloride 1,000 mls @ 75 mls/hr 10/16/17 17:45 10/18/17 06:02 Normal Saline - IV 75 mls/hr ASDIR ELGIN Administration Iron Sucrose 300 mg/ Sodium 250 mls @ 166.667 mls/hr 10/18/17 10:00 10/18/17 09:30 Chloride IVPB 10/18/17 11:29 166.667 mls/hr ONCE ONE Administration Levothyroxine Sodium 25 mcg 10/17/17 07:00 10/18/17 06:33 Synthroid - PO 25 mcg DAILY@0700 ELGIN Administration Lorazepam 1 mg 10/16/17 22:00 10/17/17 21:38 Ativan - PO 1 mg HS ELGIN Administration Losartan Potassium 50 mg 10/17/17 10:00 10/18/17 09:25 Cozaar - PO 50 mg DAILY ELGIN Administration Pantoprazole Sodium 40 mg 10/17/17 11:45 10/18/17 09:26 Protonix - PO 40 mg DAILY ELGIN Administration Hgb stable close OP f/u for repeat CBC recommended d/c with PO iron if persistent low white cell, will need further eval Problem List - Problems (1) Anemia Code(s): D64.9 - ANEMIA, UNSPECIFIED (2) History of duodenal ulcer Code(s): Z87.19 - PERSONAL HISTORY OF OTHER DISEASES OF THE DIGESTIVE SYSTEM (3) Acute blood loss anemia Code(s): D62 - ACUTE POSTHEMORRHAGIC ANEMIA
--- NOTE | 2017-10-18 12:47 | DS ---
Physical Examination Vital Signs: Vital Signs Temperature 97.6 F 10/18/17 09:20 Pulse Rate 72 10/18/17 09:20 Respiratory Rate 20 10/18/17 09:20 Blood Pressure 132/79 10/18/17 09:20 O2 Sat by Pulse Oximetry (%) 100 10/17/17 17:08 Constitutional: Yes: Calm Neck: Yes: Trachea Midline Cardiovascular: Yes: Regular Rate and Rhythm, S1, S2 Respiratory: Yes: CTA Bilaterally Gastrointestinal: Yes: Normal Bowel Sounds, Soft Edema: No Neurological: Yes: Alert, Oriented Labs: CBC, BMP 10/18/17 07:30 10/18/17 07:30 Discharge Summary Reason For Visit: GI HEMORRHAGE Current Active Problems Anemia (Acute) GI bleed (Acute) History of duodenal ulcer (Acute) Hospital Course: The patient is a 67 year old male with a history of GERD, UGI Bleed, HTN who presents for evaluation from his PCP for concerns of a low HGB. The patient reports that he had 2 recent admissions 1 month ago for Severe anemia due to a bleeding peptic ulcer requiring transfusions. He states that his PCP called him yesterday after a follow up appointment informing him to come to the ER for evaluation of a low HGB. He currently is only complaining of his normal epigastric abdominal pain. He otherwise denies fevers, chills, SOB, chest pain , lightheadedness, weakness, nausea, vomiting, melena, or changes with urination or bowel movements. patient got 1 unit of prbc got iv venofer 2 doses h/h improved to 8.5 severe iron deficiency needs po iron EGD done revealed a nearly completely healed, previously identified and treated duodenal ulcer. Normal exam otherwise. No biopsies taken (see path results from prior 2 admissions). Diverticulosis was noted on colonoscopy in early August of this year. plan to send him home with po iron and FU at office for CBC check Condition: Improved - Instructions Referrals: Jasmina Eaton MD [Staff Physician] - 1 Week (to repeat CBC) Disposition: HOME - Home Medications Comprehensive Discharge Medication List: Ambulatory Orders Pantoprazole Sodium [Protonix -] 40 mg PO BID #60 tablet.ec 09/14/17 Sucralfate Oral Suspension [Carafate Oral Suspension -] 1 gm PO QID #30 ml 09/14 Divalproex [Depakote -] 500 mg PO BID 10/16/17 Escitalopram Oxalate [Lexapro -] 20 mg PO DAILY 10/16/17 LORazepam [Ativan] 1 mg PO HS 10/16/17 Levothyroxine [Synthroid -] 25 mcg PO DAILY 10/16/17 Losartan Potassium 50 mg PO DAILY 10/16/17 Mirtazapine [Remeron -] 45 mg PO HS 10/16/17 Ferrous Sulfate [Feosol] 325 mg PO BID #60 tablet 10/17/17
[2017-10-18] MEDS: FE POLYSAC/CYANOCOBAL/FA COMBO CAPSULE PO SCH ×2 (14:00→15:22)
--- NOTE | 2017-10-18 14:15 | PN ---
Progress Note, Physician History of Present Illness: No events overnight No bleeding, pain, nausea, diarrhea, or vomiting - Current Medication List Current Medications: Active Medications B12/Folic Ac/Intrin Fact/Iron/Vit C (Niferex-150 Forte -) 1 each PO BID [facility] Divalproex Sodium (Depakote -) 500 mg PO BID [facility] Last Admin: 10/18/17 09:35 Dose: Not Given Escitalopram Oxalate (Lexapro -) 20 mg PO DAILY [facility] Last Admin: 10/18/17 09:25 Dose: 20 mg Sodium Chloride (Normal Saline -) 1,000 mls @ 75 mls/hr IV ASDIR [facility] Last Admin: 10/18/17 06:02 Dose: 75 mls/hr Levothyroxine Sodium (Synthroid -) 25 mcg PO DAILY@0700 [facility] Last Admin: 10/18/17 06:33 Dose: 25 mcg Lorazepam (Ativan -) 1 mg PO HS [facility] Last Admin: 10/17/17 21:38 Dose: 1 mg Losartan Potassium (Cozaar -) 50 mg PO DAILY [facility] Last Admin: 10/18/17 09:25 Dose: 50 mg Pantoprazole Sodium (Protonix -) 40 mg PO DAILY [facility] Last Admin: 10/18/17 09:26 Dose: 40 mg - Objective Vital Signs: Vital Signs Temperature 97.6 F 10/18/17 09:20 Pulse Rate 72 10/18/17 09:20 Respiratory Rate 20 10/18/17 09:20 Blood Pressure 132/79 10/18/17 09:20 O2 Sat by Pulse Oximetry (%) 100 10/17/17 17:08 Constitutional: Yes: Well Nourished, No Distress, Calm Eyes: Yes: Conjunctiva Clear HENT: Yes: Atraumatic Neck: Yes: Supple Cardiovascular: Yes: Regular Rate and Rhythm Respiratory: Yes: Regular Gastrointestinal: Yes: Normal Bowel Sounds, Soft. No: Distention, Rectal Bleeding, Tenderness, Tenderness, Rebound, Vomiting Neurological: Yes: Alert, Oriented Labs: CBC, BMP 10/18/17 07:30 10/18/17 07:30 INR, PTT INR 1.02 (0.82-1.09) 10/17/17 06:50 CBCD WBC 3.2 K/mm3 (4.0-10.0) L 10/18/17 07:30 RBC 3.11 M/mm3 (4.00-5.60) L 10/18/17 07:30 Hgb 8.6 GM/dL (11.7-16.9) L 10/18/17 07:30 Hct 25.3 % (35.4-49) L 10/18/17 07:30 MCV 81.4 fl (80-96) 10/18/17 07:30 MCHC 33.7 g/dl (32.0-35.9) 10/18/17 07:30 RDW 18.0 % (11.9-15.9) H 10/18/17 07:30 Plt Count 135 K/MM3 (134-434) 10/18/17 07:30 MPV 8.5 fl (7.5-11.1) 10/18/17 07:30 CMP Sodium 145 mmol/L (136-145) 10/18/17 07:30 Potassium 4.1 mmol/L (3.5-5.1) 10/18/17 07:30 Chloride 112 mmol/L (98-107) H 10/18/17 07:30 Carbon Dioxide 25 mmol/L (21-32) 10/18/17 07:30 Anion Gap 8 (8-16) 10/18/17 07:30 BUN 14 mg/dL (7-18) 10/18/17 07:30 Creatinine 1.2 mg/dL (0.7-1.3) 10/18/17 07:30 Creat Clearance w eGFR > 60 (>60) 10/18/17 07:30 Calcium 7.8 mg/dL (8.5-10.1) L 10/18/17 07:30 Total Bilirubin 0.3 mg/dL (0.2-1.0) D 10/18/17 07:30 AST 16 U/L (15-37) 10/18/17 07:30 ALT 18 U/L (12-78) 10/18/17 07:30 Alkaline Phosphatase 62 U/L (45-117) 10/18/17 07:30 Total Protein 5.8 g/dl (6.4-8.2) L 10/18/17 07:30 Albumin 3.1 g/dl (3.4-5.0) L 10/18/17 07:30 Problem List - Problems (1) Anemia Code(s): D64.9 - ANEMIA, UNSPECIFIED (2) History of duodenal ulcer Code(s): Z87.19 - PERSONAL HISTORY OF OTHER DISEASES OF THE DIGESTIVE SYSTEM (3) Duodenal ulcer Code(s): K26.9 - DUODENAL ULCER, UNSP ACUTE OR CHRONIC, W/O HEMOR OR PERF Assessment/Plan Nearly healed, previously identified duodenal ulcer, otherwise normal EGD PPI PO daily Iron supplementation, if needed Hematology consult Regular diet Avoid NSAIDs OK to d/c home from GI point of view
[2017-10-18 15:25] VITALS: BP 154/84; PULSE 66
== END 2017-10-18 16:50 | disposition home or self-care (01) ==
LOC: JER 12:56 → UNDOADMOB 15:34 → INTOOBSV 15:34 → JERBED 15:34 → J5S 17:15 → JERBED 17:15 → OBSVTOIN 17:41 → INTOOBSV 17:41 → J5S 10-17 17:08
PROVIDERS: ADMIT Family Medicine; ATTEND Family Medicine
PROC: 30233N1 Transfusion of Nonautologous Red Blood Cells into Peripheral Vein, Percutaneous Approach (ICD-10-PCS; 2017-10-17)
PROC: 3E033GC Introduction of Other Therapeutic Substance into Peripheral Vein, Percutaneous Approach (ICD-10-PCS; 2017-10-17)
PROC: 0DJ08ZZ Inspection of Upper Intestinal Tract, Via Natural or Artificial Opening Endoscopic (ICD-10-PCS; principal; 2017-10-17 11:30)
DX: D64.9 Anemia, unspecified (principal); Z87.19 Personal history of other diseases of the digestive system; K26.9 Duodenal ulcer, unspecified as acute or chronic, without hemorrhage or perforation; I10 Essential (primary) hypertension; K21.9 Gastro-esophageal reflux disease without esophagitis; F41.9 Anxiety disorder, unspecified; F32.9 Major depressive disorder, single episode, unspecified
CPT/HCPCS: 36415; 36430; 80053; 82272; 82550; 82553; 82607; 82728; 82746; 82784; 83540; 83550; 83690; 84155; 84165; 84439; 84443; 84484; 85025; 85044; 85610; 85730; 86334; 86850; 86900; 86901; 86922; 93005; 93010; 96365; 96367; 99284-25; G0378; J1756; P9058

== ENCOUNTER 2019-09-19 10:47 | Emergency (ER) | payer OTHER ==
[2019-09-19 11:07] VITALS: BP 138/75; PULSE 73; TEMP 98.5; BMI 36.6
--- NOTE | 2019-09-19 11:49 | PDOC ---
History of Present Illness - General Chief Complaint: Tremors Stated Complaint: Tremors Time Seen by Provider: 09/19/19 11:39 - History of Present Illness Initial Comments: 09/19/19 12:36 The patient is a 69 y/o male GERD, UGI bleed and HTN who presents c/o 1 month history of upper extremity tremors and 3 falls. States he has fallen three times while walking at home because he feels weak. No head trauma or LOC. Denies any pre-fall chest pain, shortness of breath, lightheadedness or palpitations. Was evaluated by his primary care doctor earlier this month and given referrals to a entry level software developer and neurologist however his neurology appointment isn't until mid October and he wants to be evaluated before that time. Past History - Past Medical History Allergies/Adverse Reactions: Allergies Allergy/AdvReac Type Severity Reaction Status Date / Time No Known Allergies Allergy Verified 09/19/19 11:02 Home Medications: Ambulatory Orders Divalproex [Depakote -] 500 mg PO BID 10/16/17 Escitalopram Oxalate [Lexapro -] 20 mg PO DAILY 10/16/17 LORazepam [Ativan] 1 mg PO HS PRN 10/16/17 Amlodipine Besylate [Norvasc -] 5 mg PO DAILY 09/19/19 Atorvastatin Calcium [Lipitor] 10 mg PO HS 09/19/19 Hydrochlorothiazide [Hctz -] 12.5 mg PO DAILY 09/19/19 Tamsulosin HCl [Flomax] 0.4 mg PO DAILY 09/19/19 COPD: No HTN: Yes Psychiatric Problems: Yes (DEPRESSION, ANXIETY) - Surgical History Appendectomy: Yes Cholecystectomy: Yes - Immunization History Immunization Up to Date: No - Psycho Social/Smoking Cessation Hx Smoking History: Never smoked Have you smoked in the past 12 months: No Information on smoking cessation initiated: No Hx Alcohol Use: No Drug/Substance Use Hx: No Substance Use Type: None Review of Systems - Review of Systems Constitutional: No: Chills, Fever HEENTM: No: Blurred Vision, Difficulty Swallowing Respiratory: No: Cough, Shortness of Breath Cardiac (ROS): No: Chest Pain, Lightheadedness, Palpitations, Syncope ABD/GI: No: Constipated, Diarrhea, Nausea, Vomiting, Abdominal cramping : No: Burning, Dysuria *Physical Exam - Vital Signs Last Vital Signs Temp Pulse Resp BP Pulse Ox 98.5 F 73 16 138/75 98 09/19/19 11:03 09/19/19 11:03 09/19/19 11:03 09/19/19 11:03 09/19/19 11:03 - Physical Exam 09/19/19 13:42 B/L upper extremity resting tremor terminates with intention 2+ B/L upper extremity strength Slow, labored, non-shuffling gait No dysmetria, B/L finger to nose and heel to reynoso symmetric CN II-XII intact S1, S2 Decreased breath sounds B/L Abdomen soft, non-tender ED Treatment Course - LABORATORY CBC & Chemistry Diagram: 09/19/19 13:10 09/19/19 13:10 Medical Decision Making - Medical Decision Making 09/19/19 12:41 69 y/o male with B/L UE tremor; c/o falls w/o LOC. PE significant for tremor at rest Broad DDx including neurologic dysfunction (Parkinson's Disease), electrolyte derangement, metabolic abnormality, infection; clinical presentation not indicative of head CT at this time. 09/19/19 14:52 Cr 1.6 w/previous elevated Cr in 2018; patient has previously scheduled appointment with nephrology 09/19/19 14:54 Patient d/c home with return precautions, instruction to keep previously scheduled appointments with nephrology, neurology. Discharge - Discharge Information Problems reviewed: Yes Clinical Impression/Diagnosis: Essential tremor, Creatinine elevation Condition: Stable Disposition: HOME - Admission No - Follow up/Referral Referrals: ON STAFF,NOT [Primary Care Provider] - - Patient Discharge Instructions Patient Printed Discharge Instructions: DI for Benign Essential Tremor Additional Instructions: En stephanie momento est seguro para el rob en el hogar. Asista a tuan citas de rin y neurologa previamente programadas. Regrese al Departamento de Emergencia para cualquier sntoma nuevo / que empeore / relacionado. At this time you are safe for discharge home. Please keep your previously scheduled kidney and neurology appointments. Return to the Emergency Department for any new/worsening/concerning symptoms. Print Language: POLISH - Post Discharge Activity
--- NOTE | 2019-09-19 13:26 | PDOC ---
Attending Attestation - Resident Resident Name: Betsey Stevenson - ED Attending Attestation I have performed the following: I have examined & evaluated the patient, The case was reviewed & discussed with the resident, I agree w/resident's findings & plan - HPI HPI: 09/19/19 13:27 69 y/o male GERD, UGI bleed and HTN who presents c/o 1 month history of upper extremity tremors and 3 falls. States he has fallen three times while walking at home because he feels weak. No head trauma or LOC. Denies any pre-fall chest pain, shortness of breath, lightheadedness or palpitations. Was evaluated by his primary care doctor earlier this month and given referrals to a donor floor technician and neurologist however his neurology appointment isn't until mid October and he wants to be evaluated before that time. - Physicial Exam PE: 09/19/19 14:14 Agree with the resident's HPI and PE as documented in the electronic medical record. NAD, alert. EOMI, PERRL, nl conjunctiva, anicteric; neck supple. lungs clear, RRR, abdomen soft nontender. no rebound, guarding. Back nontender. CLEMONS x4, no focal neuro deficits. No peripheral edema. normal color for ethnicity, WWP +resting tremors in BUE, terminates with intention. CN II-XII grossly intact. Strength prox and distally 5/5 throughout. Sensation grossly intact to light touch. CLEMONS x4. No cerebellar signs, no dysmetria, bilateral finger to nose and heel to reynoso equal and symmetric. Speech clear. - Medical Decision Making 09/19/19 14:15 Vital Signs Temp Pulse Resp BP Pulse Ox 98.5 F 73 16 138/75 98 09/19/19 11:03 09/19/19 11:03 09/19/19 11:03 09/19/19 11:03 09/19/19 11:03 Differential diagnosis includes essential tremor, dysmetria, Parkinson's disease , electrolyte abnormalities, metabolic abnormalities, anemia, infection No focal neurologic deficits, there is an intention tremor that terminates with activity and [id number], no dysmetria noted, gait is stable, no slurred speech, no indication for head CT imaging. Laboratory results are within normal limits, EKG is sinus rhythm with limitations due to the tremors and baseline segments otherwise is normal sinus rhythm at 67 bpm and this is not atrial flutter as I can see P waves and there is limitation due to the artifact. pt came to the ED because he could not wait for his neuro followup referrals given, no indication to start meds currently Pt to be discharged in stable condition. Patient made aware of clinical impression, treatment recommendations and disposition plan, return precautions discussed (including but not limited to new or persistent/worsening symptoms, pain, fevers, or signs of infection, chest pain, respiratory distress, inability to tolerate oral intake, dehydration, syncope, or neurologic changes) . Follow up with PMD and/or neurology specialist as recommended, follow up information provided, take medications as instructed for duration of time. continue with supportive care, avoid triggers and precipitants. All questions answered to patient's satisfaction and expressed understanding and comfort with this. At the time of discharge, the patient is alert, clinically improved, tolerating po and verbalizes understanding of instructions, satisfied with the care received and felt comfortable with the plan. Patient does not suffer from an acute life-threatening medical condition at this time and is safe for outpatient follow-up. 09/19/19 14:58 Heart Score/ECG Review #1 ECG reviewed & interpreted by me at: 14:00 General ECG Interpretation: Sinus Rhythm, Normal Rate, Normal Intervals 09/19/19 14:16 Normal sinus rhythm at 67 bpm, normal axis, normal intervals, poor R wave progression, borderline left bundle branch block, no ST elevation or depression , nonspecific T waves likely related to artifact and tremors
[2019-09-19 13:50] LABS: BASO % 0.7 % (0-2.0); EOS % 2.4 % (0-4.5); HEMATOCRIT 39.1 % (35.4-49); HEMOGLOBIN 13.4 GM/dL (11.7-16.9); LYMPH % 14.5 % (8-40); MCH 31.2 pg (25.7-33.7); MCHC 34.3 g/dl (32.0-35.9); MEAN PLT VOLUME 8.8 fl (7.5-11.1); MONO % 4.7 % (3.8-10.2); NEUT % 77.7 % (42.8-82.8); PLATELET COUNT 217 K/MM3 (134-434); RDW 12.9 % (11.9-15.9); WHITE BLOOD COUNT 5.4 K/mm3 (4.0-10.0)
[2019-09-19 14:17] LABS: ALBUMIN 3.6 g/dl (3.4-5.0); BILIRUBIN,TOTAL 0.4 mg/dL (0.2-1); BLOOD UREA NITROGEN 28.3 mg/dL (7-18); CALCIUM 9.7 mg/dL (8.5-10.1); CREATININE 1.6 mg/dL (0.55-1.3); POTASSIUM 4.3 mmol/L (3.5-5.1); TOT PROT 7.3 g/dl (6.4-8.2)
--- NOTE | 2019-09-19 14:49 | EKG ---
Test Reason : Blood Pressure : / mmHG Vent. Rate : 068 BPM Atrial Rate : 394 BPM P-R Int : 000 ms QRS Dur : 114 ms QT Int : 400 ms P-R-T Axes : -08 051 057 degrees QTc Int : 425 ms POOR DATA QUALITY, INTERPRETATION MAY BE ADVERSELY AFFECTED PROBABLY NORMAL SINUS RHYTHM INCOMPLETE LEFT BUNDLE BRANCH BLOCK ABNORMAL ECG Confirmed by MATTHEW INIGUEZ MD ([id number]) on 09/19/2019 2:49:27 PM Referred By: Confirmed By:MATTHEW INIGUEZ MD
== END 2019-09-19 15:40 | disposition home or self-care (01) ==
LOC: SUPCPDRO 10:47 → JER 10:47
DX: G20 Parkinson's disease (principal); R25.1 Tremor, unspecified; R94.4 Abnormal results of kidney function studies
CPT/HCPCS: 36415; 80053; 85025; 93005; 93010; 99282-25

== ENCOUNTER 2021-03-16 12:19 | Inpatient (IN) | payer OTHER ==
[2021-03-16 13:48] LABS: BASO % 0.6 % (0-2.0); EOS % 2.6 % (0-4.5); HEMATOCRIT 37.2 % (35.4-49); HEMOGLOBIN 13.1 GM/dL (11.7-16.9); LYMPH % 25.9 % (8-40); MCH 31.7 pg (25.7-33.7); MCHC 35.1 g/dl (32.0-35.9); MEAN CELL VOLUME 90.2 fl (80-96); MONO % 6.9 % (3.8-10.2); PLATELET COUNT 167 10^3/uL (134-434); RBC 4.13 M/mm3 (4.00-5.60); RDW 12.8 % (11.9-15.9); WHITE BLOOD COUNT 4.1 K/mm3 (4.0-10.0)
[2021-03-16 13:54] LABS: INR 0.87 (0.83-1.09); PROTHROMBIN TIME (PATIENT) 10.7 SEC (9.7-13.0)
[2021-03-16 13:56] LABS: ACTIVATED PTT 24.5 SECONDS (25.2-36.5)
[2021-03-16] MEDS ORDERED: ASPIRIN/DIPYRIDAMOLE 25 MG/200 MG CAPSULE PO ONE (14:30)
[2021-03-16 14:42] LABS: ALBUMIN 3.8 g/dl (3.4-5.0); ANION GAP 10 MMOL/L (8-16); BLOOD UREA NITROGEN 23.6 mg/dL (7-18); CALCIUM 9.4 mg/dL (8.5-10.1); CHLORIDE 110 mmol/L (98-107); CO2 22 mmol/L (21-32); GLUCOSE,RANDOM 75 mg/dL (74-106); SODIUM 143 mmol/L (136-145)
[2021-03-16 14:44] LABS: CHOLESTEROL 174 mg/dL (50-200); TRIGLYCERIDES 249 mg/dL (0-150)
[2021-03-16 14:45] LABS: LDL CHOLESTEROL (ONLY SJRH) 95 mg/dL (5-100)
[2021-03-16 14:46] LABS: HDL CHOLESTEROL 45 mg/dL (40-60)
[2021-03-16 14:48] LABS: ALK PHOS 87 U/L (45-117); BILIRUBIN,TOTAL 0.4 mg/dL (0.2-1); CREATININE 2.1 mg/dL (0.55-1.3); SGOT/AST 25 U/L (15-37); SGPT/ALT 22 U/L (13-61); TOT PROT 7.4 g/dl (6.4-8.2)
[2021-03-16] MEDS ORDERED: ASPIRIN/DIPYRIDAMOLE 25 MG/200 MG CAPSULE ONE (14:57)
[2021-03-16] MEDS ORDERED: SODIUM CHLORIDE 0.9% 1000 ML INFUS.BAG IV ONE (15:46)
[2021-03-16 15:58] LABS: EPI CELLS 3 /uL (0-25.1); HYALINE CASTS 0 /uL (0-3.1); URINE APPEARANCE CLEAR; URINE BACTERIA 46 /uL (0-1359); URINE BILIRUBIN NEGATIVE (NEGATIVE); URINE COLOR YELLOW; URINE GLUCOSE (UA) NEGATIVE (NEGATIVE); URINE KETONE NEGATIVE (NEGATIVE); URINE LEUK ESTERASE NEGATIVE (NEGATIVE); URINE NITRITE NEGATIVE (NEGATIVE); URINE PROTEIN 2+ (NEGATIVE); URINE RBC 2 /uL (0-23.9); URINE UROBILINOGEN 0.2 mg/dL (0.2-1.0); URINE WBC 4 /uL (0-25.8)
[2021-03-16] MEDS ORDERED: ATORVASTATIN CA 10 MG TABLET (FP) PO SCH (22:00)
[2021-03-16] MEDS ORDERED: ATORVASTATIN CA 40 MG TABLET (FP) PO SCH (22:17)
[2021-03-16 22:29] VITALS: BMI 30.7
[2021-03-16] MEDS: METOPROLOL TARTRATE 25 MG TABLET (FP) PO SCH (22:40)
[2021-03-16] MEDS: DIVALPROEX SODIUM 500 MG TABLET E.C. PO SCH (22:40)
[2021-03-16] MEDS: ATORVASTATIN CA 40 MG TABLET (FP) PO SCH ×2 (22:40)
[2021-03-16] MEDS: HEPARIN NA (PORCINE) 5,000 UNITS/ML 1ML VIAL SQ SCH (22:40)
[2021-03-17 06:52] LABS: BASO % 0.8 % (0-2.0); EOS % 2.9 % (0-4.5); HEMATOCRIT 34.4 % (35.4-49); HEMOGLOBIN 12.2 GM/dL (11.7-16.9); LYMPH % 27.1 % (8-40); MCH 31.5 pg (25.7-33.7); MCHC 35.5 g/dl (32.0-35.9); MEAN CELL VOLUME 88.7 fl (80-96); MEAN PLT VOLUME 8.9 fl (7.5-11.1); NEUT % 62.2 % (42.8-82.8); PLATELET COUNT 156 10^3/uL (134-434); RBC 3.88 M/mm3 (4.00-5.60); RDW 12.4 % (11.9-15.9); WHITE BLOOD COUNT 4.4 K/mm3 (4.0-10.0)
[2021-03-17 07:10] LABS: CHLORIDE 111 mmol/L (98-107); SODIUM 143 mmol/L (136-145)
[2021-03-17 07:14] LABS: ALBUMIN 3.5 g/dl (3.4-5.0); ANION GAP 6 MMOL/L (8-16); BLOOD UREA NITROGEN 24.4 mg/dL (7-18); CALCIUM 8.7 mg/dL (8.5-10.1); CO2 26 mmol/L (21-32); GLUCOSE,RANDOM 72 mg/dL (74-106)
[2021-03-17 07:17] LABS: SGOT/AST 15 U/L (15-37); SGPT/ALT 18 U/L (13-61)
[2021-03-17 07:18] LABS: CREATININE 1.9 mg/dL (0.55-1.3)
[2021-03-17 07:19] LABS: BILIRUBIN,TOTAL 0.4 mg/dL (0.2-1); TOT PROT 6.7 g/dl (6.4-8.2)
[2021-03-17 07:20] LABS: ALK PHOS 82 U/L (45-117)
[2021-03-17] MEDS: TAMSULOSIN HCL 0.4 MG CAP PO SCH (08:23)
[2021-03-17] MEDS ORDERED: ESCITALOPRAM OXALATE 10 MG TABLET ONE (09:21)
[2021-03-17] MEDS: METOPROLOL TARTRATE 25 MG TABLET (FP) PO SCH ×2 (09:35→21:57)
[2021-03-17] MEDS: amLODIPine BESYLATE 5 MG TABLET (FP) PO SCH (09:35)
[2021-03-17] MEDS: ESCITALOPRAM OXALATE 20 MG TABLET PO SCH (09:35)
[2021-03-17] MEDS: DIVALPROEX SODIUM 500 MG TABLET E.C. PO SCH ×2 (09:35→21:57)
[2021-03-17] MEDS: HEPARIN NA (PORCINE) 5,000 UNITS/ML 1ML VIAL SQ SCH ×2 (09:35→21:57)
[2021-03-17] MEDS: ASPIRIN COATED 81 MG TABLET.EC PO SCH (09:35)
[2021-03-17] MEDS ORDERED: SODIUM CHLORIDE 0.45% 1,000 ML IV SCH (11:45)
[2021-03-17] MEDS: ATORVASTATIN CA 40 MG TABLET (FP) PO SCH (21:57)
[2021-03-18 08:59] VITALS: TEMP 98.3
[2021-03-18] MEDS ORDERED: ESCITALOPRAM OXALATE 10 MG TABLET ONE (09:03)
[2021-03-18] MEDS: ASPIRIN COATED 81 MG TABLET.EC PO SCH (09:04)
[2021-03-18] MEDS: amLODIPine BESYLATE 5 MG TABLET (FP) PO SCH (09:04)
[2021-03-18] MEDS: METOPROLOL TARTRATE 25 MG TABLET (FP) PO SCH (09:04)
[2021-03-18] MEDS: ESCITALOPRAM OXALATE 20 MG TABLET PO SCH (09:04)
[2021-03-18] MEDS: DIVALPROEX SODIUM 500 MG TABLET E.C. PO SCH (09:04)
[2021-03-18] MEDS: HEPARIN NA (PORCINE) 5,000 UNITS/ML 1ML VIAL SQ SCH (09:04)
[2021-03-18] MEDS: TAMSULOSIN HCL 0.4 MG CAP PO SCH (09:04)
[2021-03-18 13:33] VITALS: BP 138/88; PULSE 57
== END 2021-03-18 17:25 | disposition home or self-care (01) | DRG 69 ==
LOC: JER 12:19 → JERBED 16:55 → J4S 22:06
PROVIDERS: ADMIT Family Medicine; ATTEND Family Medicine
DX: G45.9 Transient cerebral ischemic attack, unspecified (principal); N17.9 Acute kidney failure, unspecified; N18.9 Chronic kidney disease, unspecified; I10 Essential (primary) hypertension; E78.5 Hyperlipidemia, unspecified; K21.9 Gastro-esophageal reflux disease without esophagitis
CPT/HCPCS: 36415; 70450-TC; 70551-TC; 71045-TC-FY; 76775-TC; 80053; 80061; 81003; 82550; 82570; 82962; 83036; 83721; 83735; 84156; 84443; 84484; 85025; 85610; 85730; 86850; 86900; 86901; 93005; 93010; 93306-TC; 97116-GP; 97161-GP; 99285-25; C9803; G0378; J1644; U0003; U0005

== ENCOUNTER 2024-01-07 08:20 | Emergency (ER) | payer OTHER ==
[2024-01-07 08:44] VITALS: BMI 29.9
[2024-01-07] MEDS ORDERED: diphenhydrAMINE HCL 25 MG CAPSULE (FP) PO ONE (09:52)
[2024-01-07] MEDS: diphenhydrAMINE HCL 25 MG CAPSULE (FP) PO ONE (10:06)
[2024-01-07 10:09] LABS: BASO % 0.7 % (0-2.0); EOS % 0.5 % (0-4.5); HEMATOCRIT 36.8 % (35.4-49); LYMPH % 12.4 % (8-40); MCH 30.7 pg (25.7-33.7); MCHC 35.3 g/dl (32.0-35.9); MEAN CELL VOLUME 86.7 fl (80-96); MEAN PLT VOLUME 8.6 fl (7.5-11.1); MONO % 5.5 % (3.8-10.2); NEUT % 80.9 % (42.8-82.8); PLATELET COUNT 135 10^3/uL (134-434); RBC 4.25 M/mm3 (4.00-5.60); RDW 12.9 % (11.9-15.9); WHITE BLOOD COUNT 5.6 K/mm3 (4.0-10.0)
[2024-01-07 10:14] LABS: INR 0.97 (0.83-1.09)
[2024-01-07 10:17] LABS: ACTIVATED PTT 29.1 SECONDS (25.2-36.5)
[2024-01-07 10:26] LABS: EPI CELLS 2 /uL (0-25.1); HYALINE CASTS 1 /uL (0-3.1); PH,URINE 6.5 (5.0-8.0); URINE APPEARANCE CLEAR; URINE BACTERIA 2 /uL (0-1359); URINE BILIRUBIN NEGATIVE (NEGATIVE); URINE COLOR YELLOW; URINE GLUCOSE (UA) NEGATIVE (NEGATIVE); URINE KETONE NEGATIVE (NEGATIVE); URINE LEUK ESTERASE NEGATIVE (NEGATIVE); URINE NITRITE NEGATIVE (NEGATIVE); URINE PROTEIN 3+ (NEGATIVE); URINE RBC 14 /uL (0-23.9); URINE WBC 1 /uL (0-25.8)
[2024-01-07 10:29] LABS: POTASSIUM 4.5 mmol/L (3.5-5.1)
[2024-01-07 10:30] LABS: MAGNESIUM 2.2 mg/dL (1.8-2.4)
[2024-01-07 10:31] LABS: CALCIUM 9.4 mg/dL (8.5-10.1)
[2024-01-07 10:32] LABS: BLOOD UREA NITROGEN 35.3 mg/dL (7-18)
[2024-01-07 10:34] LABS: PHOSPHOROUS 3.6 mg/dL (2.5-4.9)
[2024-01-07 10:37] LABS: BILIRUBIN,TOTAL 0.6 mg/dL (0.2-1); TOT PROT 7.7 g/dl (6.4-8.2)
[2024-01-07] MEDS ORDERED: LORazepam 1 MG TABLET ONE (11:15)
[2024-01-07] MEDS: LORazepam 2 MG TABLET PO ONE (11:18)
[2024-01-07] MEDS ORDERED: ACETAMINOPHEN INJECTION 100 ML IVPB ONE (11:20)
[2024-01-07] MEDS: ACETAMINOPHEN 1000 MG/100 ML BAG IVPB ONE (11:24)
[2024-01-07 13:30] VITALS: BP 138/84; PULSE 76; RESP 16; TEMP 98.1
== END 2024-01-07 14:07 | disposition home or self-care (01) ==
LOC: JER 08:20
PROC: 3E033NZ Introduction of Analgesics, Hypnotics, Sedatives into Peripheral Vein, Percutaneous Approach (ICD-10-PCS; principal; 2024-01-07)
DX: R45.1 Restlessness and agitation (principal); F41.9 Anxiety disorder, unspecified; R53.1 Weakness
CPT/HCPCS: 36415; 80053; 81003; 83735; 84100; 85025; 85610; 85730; 87086; 93005; 93010; 96375; 99284-25; J0131

== ENCOUNTER 2024-06-13 11:02 | Emergency (ER) | payer OTHER ==
[2024-06-13 11:17] VITALS: BP 170/96; PULSE 98; RESP 18; TEMP 98.6; BMI 29.6
== END 2024-06-13 12:55 | disposition home or self-care (01) ==
LOC: JER 11:02
DX: R68.2 Dry mouth, unspecified (principal); K02.9 Dental caries, unspecified; L76.22 Postprocedural hemorrhage of skin and subcutaneous tissue following other procedure
CPT/HCPCS: 82962; 93005; 93010; 99283-25